=== PATIENT | female | born 1945 | race Caucasian/White ===

== ENCOUNTER → 2023-05-19 18:35 | Outpatient (REF) | payer MEDICARE, OTHER, SELFPAY ==
[2023-05-19 19:16] LABS: Urine Albumin Negative (Neg - Trace); Urine Bilirubin Negative (Negative); Urine Character Clear (Clear); Urine Color Yellow; Urine Glucose Negative (Negative); Urine Ketone Negative (Negative); Urine Leukocyte 2+ (Negative); Urine Nitrite Positive (Negative); Urine Occult Blood Trace (Negative); Urine Urobilinogen Negative (Neg - 1+); Urine pH 6.5 (5.0-9.0)
[2023-05-19 19:26] LABS: Urine Bacteria Many (Negative); Urine Red Blood Cell 0-2 /HPF (0-2); Urine Squamous Cell >100 /LPF (Few); Urine White Cell >100 /HPF (0-5)
== END ==
LOC: OLABSOL 18:35
PROVIDERS: ATTENDING PHYSICIAN Registered Nurse
DX: N39.0 Urinary tract infection, site not specified (principal)
CPT/HCPCS: 81003; 81015

== ENCOUNTER → 2023-05-27 13:01 | Outpatient (REF) | payer MEDICARE, OTHER, SELFPAY ==
[2023-05-27 13:51] LABS: Urine Albumin Negative (Neg - Trace); Urine Bilirubin Negative (Negative); Urine Character Clear (Clear); Urine Color Yellow; Urine Glucose Negative (Negative); Urine Ketone Negative (Negative); Urine Leukocyte 1+ (Negative); Urine Nitrite Positive (Negative); Urine Occult Blood Negative (Negative); Urine Specific Gravity 1.025 (<1.030); Urine Urobilinogen Negative (Neg - 1+)
[2023-05-27 14:04] LABS: Urine Bacteria Many (Negative); Urine White Cell 21-25 /HPF (0-5)
== END ==
LOC: OLABSOL 13:01
PROVIDERS: ATTENDING PHYSICIAN Hospitalist
DX: R41.82 Altered mental status, unspecified (principal)
CPT/HCPCS: 81003; 81015; 87086; 87088; 87186

== ENCOUNTER → 2023-07-06 15:00 | Outpatient (REF) | payer MEDICARE, OTHER, SELFPAY ==
[2023-07-07 12:58] LABS: Urine Albumin Negative (Neg - Trace); Urine Bilirubin Negative (Negative); Urine Character Clear (Clear); Urine Color Yellow; Urine Glucose Negative (Negative); Urine Ketone Negative (Negative); Urine Leukocyte 2+ (Negative); Urine Nitrite Positive (Negative); Urine Occult Blood Negative (Negative); Urine Urobilinogen Negative (Neg - 1+)
[2023-07-07 14:13] LABS: Urine Amorphous Seen; Urine Mucus Few
[2023-07-07 14:16] LABS: Urine Bacteria Many (Negative); Urine Red Blood Cell 0-2 /HPF (0-2); Urine White Cell 40-50 /HPF (0-5)
== END ==
LOC: OLABSOL 15:00
PROVIDERS: ATTENDING PHYSICIAN Nurse Practitioner Gerontology
DX: N39.0 Urinary tract infection, site not specified (principal)
CPT/HCPCS: 81003; 81015; 87077; 87086; 87186

== ENCOUNTER 2023-08-11 17:51 | Emergency (ER) | payer MEDICARE, OTHER, SELFPAY ==
[2023-08-11 17:54] VITALS: BP 125/65
[2023-08-11 17:57] VITALS: BMI 22.3
[2023-08-11 18:14] LABS: % Basophils 0.3 % (0-2); % Eosinophils 0.4 % (0-6); % Immature Granulocytes 0.5 % (0-0.5); % Lymphocytes 8.1 % (20.5-51.1); % Monocytes 8.4 % (1.7-9.3); % Neutrophils 82.3 % (42.2-75.2); Absolute Eosinophils 0.1 10^3/uL (0-0.7); Absolute Immature Granulocytes 0.1 10^3/uL (0-0.05); Absolute Lymphocytes 1.1 10^3/uL (1.2-3.4); Absolute Monocytes 1.2 10^3/uL (0.1-0.6); Absolute Neutrophils 11.6 10^3/uL (1.4-6.5); Hemoglobin 11.7 g/dL (12.0-16.0); Mean Corp Hgb Conc. 32.5 g/dL (33.0-37.0); Mean Corpuscular Hgb 24.6 pg (27.0-31.0); Mean Corpuscular Volume 75.6 fL (81.0-99.0); Mean Platelet Volume 9.9 fL (7.4-10.4); Nucleated Red Blood Cells % 0 %; Platelet Count 267 10^3/uL (130-400); Red Blood Cell Count 4.76 10^6/uL (4.20-5.40); Red Cell Dist. Width 18.9 % (11.5-14.5); White Blood Cell Count 14.1 10^3/uL (4.8-10.8)
[2023-08-11 18:36] LABS: ALT (SGPT) 10 U/L (0-35); AST (SGOT) 21 U/L (14-36); Albumin 4.4 g/dl (3.5-5.0); Alkaline Phosphatase 95 U/L (38-126); Blood Urea Nitrogen 21 mg/dl (7-17); Calcium 9.3 mg/dl (8.4-10.2); Carbon Dioxide 24 mmol/L (22-30); Chloride 103 mmol/L (98-107); Estimated Creatinine Clearance 54 ml/min; Glucose 99 mg/dl (70-99); Lipase 22 U/L (23-300); Potassium 4.1 mmol/L (3.5-5.1); Sodium 137 mmol/L (135-145); Total Bilirubin 0.7 mg/dl (0.2-1.3); Total Protein 7.4 g/dl (6.3-8.2); eGFR > 60.00
[2023-08-11 21:22] VITALS: BP 91/68
[2023-08-11 21:33] LABS: Urine Albumin Trace (Neg - Trace); Urine Bilirubin Negative (Negative); Urine Character Very Cloudy (Clear); Urine Color Yellow; Urine Glucose Negative (Negative); Urine Ketone Trace (Negative); Urine Leukocyte 2+ (Negative); Urine Nitrite Negative (Negative); Urine Occult Blood 2+ (Negative); Urine Urobilinogen Negative (Neg - 1+)
[2023-08-11 21:41] LABS: Urine Bacteria Many (Negative); Urine Red Blood Cell 0-2 /HPF (0-2); Urine White Cell 30-40 /HPF (0-5)
[2023-08-11 21:56] VITALS: BP 117/61
[2023-08-11 22:00] VITALS: BP 107/61
--- NOTE | 2023-08-11 22:11 | ED.GENMED ---
History of Present Illness
General
Chief Complaint: Abdominal Pain
Source: patient and family
Exam Limitations: none
Time Seen by Provider: 08/11/23 20:56
Travel History
Have you had any contact with someone who has COVID-19?: No
Do you have any symptoms of coronavirus? Fever > 100 degrees, chills, cough, shortness of breath, sore throat, loss of taste or smell, muscle aches, or headache?: No
History of Present Illness
History of Present Illness:
77-year-old female with frequent UTIs. Finished Macrobid last week. Today she had more urgency and frequency which warranted evaluation. No fever no flank or back pain.
Past History
Past History
ED Past Medical History: Hypercholesterolemia and Other (Kidney stones)
ED Past Surgical History: Gynecological, Orthopedic (Bunionectomy with hammertoe repair, left patellar fracture, right hip replacement, fusion C3-4-5 and 6), Tonsilectomy and Other (Patient has functional quadriplegia with spasticity, left leg brace)
Social History
Tobacco: Former smoker
Alcohol: None
Personal:
Living: with family
Review of Systems
Review of Systems
All Other Systems: Not applicable
Constitutional: Denies fever
: Denies flank pain
Phy Exam
Physical Exam
Physical Exam:
GENERAL: Alert and oriented in no apparent distress
EYE: Orbits normal.
NECK: Supple
CARDIAC: Regular rate and rhythm without any obvious murmurs.
LUNGS: Clear breath sounds,normal
ABDOMEN: Soft, without focal tenderness or distention. No CVA tenderness
NEUROLOGICAL: Alert and oriented , grossly non-focal
SKIN: Warm and dry, no rash or lesion, no discoloration, skin intact.
MUSCULOSKELETAL: No edema,no deformity.Good color
PSYCH: Normal and appropriate interaction.
Course
Orders/Labs/Results
Orders:
Orders
08/11/23 17:59
Electrocardiogram (*1) Urgent
Reason for Study: Abdominal Pain
EKG- Treatment ONCE
08/11/23 18:10
Complete Blood Count/With Diff Urgent
Comprehensive Metabolic Panel Urgent
Lipase Urgent
08/11/23 21:06
CT Abd/pel Without Iv Or Oral Urgent
Comment:
Reason For Exam: Recurrent UTI. Evaluate for hydronephrosis/stone
08/11/23 21:20
Urinalysis Reflex To Culture Urgent
Date Specimen was Collected: 08/11/23
Time Specimen was Collected: 21:12
Urine Microscopic Reflex Cult Urgent
Urine Culture Urgent
BURT Source: U
Specimen Description:
Date Specimen was Collected: 08/11/23
Time Specimen was Collected: 21:12
08/11/23 22:44
CefTRIAXone [Rocephin] 1,000 mg IV NOW STA
Abnormal Lab Results
08/11/23 08/11/23
18:10 21:20
WBC 14.1 H 10^3/uL
(4.8-10.8)
Hgb 11.7 L g/dL
(12.0-16.0)
Hct 36.0 L %
(37.0-47.0)
MCV 75.6 L fL
(81.0-99.0)
MCH 24.6 L pg
(27.0-31.0)
MCHC 32.5 L g/dL
(33.0-37.0)
RDW 18.9 H %
(11.5-14.5)
Abs Immat Gran (auto) 0.1 H 10^3/uL
(0-0.05)
Absolute Neuts (auto) 11.6 H 10^3/uL
(1.4-6.5)
Absolute Lymphs (auto) 1.1 L 10^3/uL
(1.2-3.4)
Absolute Monos (auto) 1.2 H 10^3/uL
(0.1-0.6)
Neutrophils % 82.3 H %
(42.2-75.2)
Lymphocytes % 8.1 L %
(20.5-51.1)
BUN 21 H mg/dl
(7-17)
Creatinine 0.5 L mg/dL
(0.6-1.0)
Lipase 22 L U/L
(23-300)
Urine Ketones Trace A
(Negative)
Ur Occult Blood Reflex 2+ A
(Negative)
Leukocyte Esterase Rfl 2+ A
(Negative)
Urine WBC (Reflex) 30-40 A /HPF
(0-5)
Urine Bacteria (Reflex) Many A
(Negative)
08/11/23 18:10
08/11/23 18:10
Vital Signs
Initial and Last Documented VS:
Initial Vital Signs
Temp Pulse Resp BP Pulse Ox
98.7 F 94 18 125/65 97
08/11/23 17:54 08/11/23 17:54 08/11/23 17:54 08/11/23 17:54 08/11/23 17:54
Last Documented Vital Signs
Temp Pulse Resp BP Pulse Ox
98.7 F 94 18 107/61 96
08/11/23 17:54 08/11/23 17:54 08/11/23 17:54 08/11/23 22:00 08/11/23 22:30
*Radiology
Radiology exam reviewed: radiology read reviewed (No obvious urinary or kidney issue from CT scan)
*Pulse Oximetry
Patient hypoxic: no
*EKG
Interpreted by ED Provider?: Yes
Interpretation: abnormal
Comparison EKG: no changes
Heart Rate: 100
Rate: normal
Rhythm: sinus
Tuckerman: left axis deviation
Interval: normal interval
QRS Pattern: left vent hypertrophy
Ischemia: non-specific ST changes
*Critical Care Note
Total Time (30-74mins, 75-104mins- exclusive of procedures): Not Applicable
Data Reviewed
Review of Other/Old Records Reveals: Labs and Testing
Update Note
Update Note:
Patient stable and nontoxic. No sign of stone. In no distress. Mild white count. Clinically not toxic. Will give a gram of Rocephin and follow-up. No significant bladder distention
Copy of CT report given to patient's daughter
ED Attending Note
-
Portions of this chart may have been created with voice recognition software.� Occasional wrong word or��sound alike� substitutions may have occurred due to the inherent limitations of voice recognition software.
Discharge Plan
Departure
Patient Disposition: Home (Routine Discharge)
Date of Disposition: 08/11/23
Time of Disposition: 22:46
Patient with high blood pressure during this ER visit?: No
Discharge Problem:
Recurrent UTI
Instructions: Urinary Tract Infection, Adult ED
Prescriptions:
New
cefdinir 300 mg capsule
300 mg PO BID 7 Days Qty: 14 0RF
No Action
fluticasone propion-salmeterol 250-50 mcg/dose blister with device
1 inh INHALATION R BID
oxybutynin chloride 10 mg tablet extended release 24hr
10 mg PO DAILY
levothyroxine 112 mcg tablet
112 mcg PO HS
pantoprazole 40 mg Tablet,Delayed Release (Dr/Ec)
40 mg PO DAILY
duloxetine 30 mg Capsule,Delayed Release(Dr/Ec)
90 mg PO DAILY Qty: 0 0RF
docusate sodium 100 mg Capsule
100 mg PO BID Qty: 0 0RF
polyethylene glycol 3350 17 gram Powder In Packet
17 g PO DAILY Qty: 0 0RF
bupropion HCl 100 mg Tablet Sustained-Release 12 Hr
100 mg PO DAILY Qty: 0 0RF
cholecalciferol (vitamin D3) [Vitamin D3] 10 mcg (400 unit) Tablet
400 units PO DAILY Qty: 0 0RF
acetaminophen 500 mg Tablet
1,000 mg PO Q8H Qty: 0 0RF
baclofen 10 mg Tablet
15 mg PO TID@0800,1400,2000 Qty: 0 0RF
celecoxib 200 mg Capsule
200 mg PO DAILY Qty: 30 0RF
gabapentin 300 mg Capsule
300 mg PO Q8 Qty: 60 0RF
lidocaine [Aspercreme (lidocaine)] 4 % adhesive patch,medicated
2 patch topical DAILY
aspirin 81 mg capsule
81 mg PO DAILY Qty: 30 0RF
lorazepam 0.5 mg Tablet
0.5 mg PO HSPRN PRN (Reason: Anxiety / Insomnia) Qty: 7 0RF
oxycodone 5 mg Tablet
5 mg PO Q4HPRN PRN (Reason: moderate pain) Qty: 7 0RF
Referrals:
JOHN BIRCH CRNP [Family Provider] - Follow up in 2-3 days
Gerardo Valentin MD [Active] - Next open appointment
Activity Restrictions/Additional Instructions:
Start the oral antibiotics tomorrow night
Interventions
Interventions:
*Risk Screen - Suicide Last Done: 08/11/23 17:57
*Neglect/Abuse Screening Last Done: 08/11/23 17:57
ED- Fall Risk Assessment Last Done: 08/11/23 17:57
NK-Rjyrtu-Zlferlxcdl Assessment Last Done: 08/11/23 21:12
Discharge Date and Time
Print Language: SAMOAN
[2023-08-11] MEDS: ROCEPHIN 1000 MG IV (22:59)
[2023-08-11 23:00] VITALS: BP 123/65
== END 2023-08-11 23:20 | disposition home or self-care (01) ==
LOC: EMR 17:51
PROVIDERS: Emergency Medicine; EMERGENCY PHYSICIAN Emergency Medicine; FAMILY PHYSICIAN Nurse Practitioner Gerontology
DX: N39.0 Urinary tract infection, site not specified (principal); Z87.891 Personal history of nicotine dependence; Z87.440 Personal history of urinary (tract) infections
CPT/HCPCS: 99285; 96374; 74176; 80053; 81003; 81015; 83690; 85025; 87086; 87088; 87186; 93005

== ENCOUNTER 2023-08-30 19:14 | Inpatient (IN) | payer MEDICARE, OTHER, SELFPAY ==
[2023-08-30 15:30] VITALS: BP 116/83; BMI 22.5
--- NOTE | 2023-08-30 15:57 | ED.GENMED ---
History of Present Illness
General
Chief Complaint: Urinary Symptoms
Source: patient and detention records
Exam Limitations: none
Time Seen by Provider: 08/30/23 15:55
Nursing documentation reviewed up to this point in time: agreed with
Travel History
Have you had any contact with someone who has COVID-19?: No
Do you have any symptoms of coronavirus? Fever > 100 degrees, chills, cough, shortness of breath, sore throat, loss of taste or smell, muscle aches, or headache?: No
History of Present Illness
History of Present Illness:
77-year-old female from [place] with history of diverticulitis, GERD, IBS, difficulty urination, frequent UTIs, hypothyroid, anxiety depression panic disorder, presents stating 'my bladder did not empty for a whole week.' She denies abdominal pain.
She denies dysuria. She denies fever or chills.
Past History
Past History
ED Past Medical History: Hypercholesterolemia, Psychiatric (Anxiety/depression/panic disorder) and Other (Kidney stones)
ED Past Surgical History: Gynecological, Orthopedic (Bunionectomy with hammertoe repair, left patellar fracture, right hip replacement, fusion C3-4-5 and 6), Tonsilectomy and Other (Patient has functional quadriplegia with spasticity, left leg brace)
Social History
Tobacco: Former smoker
Alcohol: None
Personal:
Living: with family
Review of Systems
Review of Systems
Allergies reviewed?: Yes
All Other Systems: ROS reviewed and negative except as documented in HPI and ROS
Constitutional: Denies fever or chills
Respiratory: Denies trouble breathing
Cardiac: Denies chest pain
ABD/GI: Denies abdominal pain, nausea, vomiting, diarrhea or anorexia
: Reports frequency and difficulty voiding; Denies dysuria or flank pain
Musculoskeletal: Reports no symptoms
Skin: Reports no symptoms
Neurological: Reports no symptoms
Phy Exam
Physical Exam
Physical Exam:
GENERAL: No acute distress. A&Ox3.
CONSTITUTIONAL: Afebrile.
RESPIRATORY: Regular respirations, nonlabored, lungs clear.
CARDIOVASCULAR: Regular rate and rhythm, no murmurs, no rubs.
GI: Soft, nontender, normal BS
Rectal: Stool heme neg
MUSCULOSKELETAL: Moves with ease. Well perfused.
SKIN: Warm, dry, pink
PSYCH: Normal mood and affect. Well kept, interactive and appropriate
NEUROLOGIC: Awake, alert and oriented. No focal neurological deficits
Course
Orders/Labs/Results
Orders:
Orders
08/30/23 Breakfast
Cholesterol Lowering
At Your Request: Full Participation
Cholesterol Lowering: Sodium, 2 Gram
08/30/23 16:34
Urinalysis Reflex To Culture Urgent
Date Specimen was Collected: 08/30/23
Time Specimen was Collected: 15:54
Urine Microscopic Reflex Cult Urgent
Urine Culture Urgent
BURT Source: U
Specimen Description:
Date Specimen was Collected: 08/30/23
Time Specimen was Collected: 15:54
08/30/23 16:37
Complete Blood Count/With Diff Urgent
08/30/23 18:19
Piperacillin/Tazo 3.375 Gram [Zosyn] 3.375 gram in 50 ml IV NOW
08/30/23 18:27
Comprehensive Metabolic Panel Urgent
08/30/23 18:50
Admit/Transfer Patient As Directed
Co-Sign Provider:
Level of Care: Inpatient admission
Assign to:: Medical/Surgical
Physician / Group: jeannette oconnell
Diagnosis: UTi
Reason for Hospitalization: UTi
Expected length of stay greater than two midnights?: Yes
ELOS- Estimated Length of Stay in days: 3
I certify the patient meets the requirements for IP care: Yes
Code Status As Directed
Resuscitation Status: Full Code
08/30/23 19:31
Acetaminophen [Tylenol] 650 mg PO Q4HPRN PRN
Acetaminophen [Tylenol] 650 mg PO Q6HPRN PRN
Bisacodyl [Dulcolax] 10 mg RECTAL [id number] PRN
Docusate W/Senna [Senokot-S] 1 tablet PO BIDPRN PRN
Lorazepam [Ativan] 0.5 mg PO HSPRN PRN
Oxycodone [Roxicodone] 5 mg PO Q8HPRN PRN
Polyethylene Glycol Powder [Miralax] 17 grams PO DAILYPRN PRN
08/30/23 19:31
Activity As Directed
Activity Level: As Tolerated
Vital Signs As Directed
Frequency: Per unit guidelines
DX Deep Vein Thrombosis Video Routine
08/30/23 20:00
Baclofen [Lioresal] 10 mg PO TID@0800,1400,2000
Docusate Sodium [Colace] 100 mg PO BID
08/30/23 22:00
Levothyroxine [Synthroid] 112 mcg PO HS
08/31/23 00:00
Acetaminophen [Tylenol] 500 mg PO Q8
Gabapentin [Neurontin] 300 mg PO Q8
Piperacillin/Tazo 3.375 Gram [Zosyn] 3.375 gram in 50 ml IV Q6H
08/31/23 05:28
Basic Metabolic Panel IN AM
Complete Blood Count/No Diff IN AM
08/31/23 06:00
Occupational Therapy Consult [Ot Eval And Treat] IN AM
Physical Therapy Consult [Pt Eval And Treat] IN AM
Activity Level: As Tolerated
08/31/23 08:00
Bupropion(24Hr)Extended Releas [WELLBUTRIN XL (24 hour extended release)] 150 mg PO DAILY
Celecoxib [Celebrex] 200 mg PO DAILY
Fluticasone/Salmeterol 115/21 [Advair Hfa 115/21 Mcg Inhaler] 2 puff INH R BID
Lidocaine [Lidocaine 4% Patch] See Dose Instructions TOPICAL DAILY
Oxybutynin Chloride [Ditropan] 5 mg PO BID
Pantoprazole [Protonix] 40 mg PO DAILY
08/31/23 18:00
Enoxaparin Sodium [Lovenox] 40 mg SC QPM
09/01/23 06:00
Basic Metabolic Panel IN AM
Complete Blood Count/No Diff IN AM
09/02/23 06:00
Basic Metabolic Panel IN AM
Complete Blood Count/No Diff IN AM
09/03/23 06:00
Basic Metabolic Panel IN AM
Complete Blood Count/No Diff IN AM
09/04/23 06:00
Basic Metabolic Panel IN AM
Complete Blood Count/No Diff IN AM
Abnormal Lab Results
08/30/23 08/30/23 08/30/23
16:34 16:37 18:27
RBC 3.95 L 10^6/uL
(4.20-5.40)
Hgb 9.8 L g/dL
(12.0-16.0)
Hct 30.5 L %
(37.0-47.0)
MCV 77.2 L fL
(81.0-99.0)
MCH 24.8 L pg
(27.0-31.0)
MCHC 32.1 L g/dL
(33.0-37.0)
RDW 18.9 H %
(11.5-14.5)
MPV 10.6 H fL
(7.4-10.4)
Absolute Neuts (auto) 7.0 H 10^3/uL
(1.4-6.5)
Absolute Monos (auto) 1.5 H 10^3/uL
(0.1-0.6)
Lymphocytes % 15.1 L %
(20.5-51.1)
Monocytes % 14.2 H %
(1.7-9.3)
Sodium 134 L mmol/L
(135-145)
Carbon Dioxide 21 L mmol/L
(22-30)
BUN 22 H mg/dl
(7-17)
AST 39 H U/L
(14-36)
Urine Ketones Trace A
(Negative)
Ur Occult Blood Reflex 1+ A
(Negative)
Leukocyte Esterase Rfl 2+ A
(Negative)
Urine RBC 3-6 A /HPF
(0-2)
Urine WBC (Reflex) 70-80 A /HPF
(0-5)
Urine Bacteria (Reflex) Many A
(Negative)
08/30/23 16:37
08/30/23 18:27
Vital Signs
Initial and Last Documented VS:
Initial Vital Signs
Temp Pulse Resp BP Pulse Ox
98.5 F 77 18 116/83 96
08/30/23 15:30 08/30/23 15:30 08/30/23 15:30 08/30/23 15:30 08/30/23 15:30
Last Documented Vital Signs
Temp Pulse Resp BP Pulse Ox
98.1 F 72 16 116/60 94
08/31/23 08:02 08/31/23 08:20 08/31/23 08:20 08/31/23 08:02 08/31/23 08:20
MDM/Problems Addressed
Differential Diagnosis Includes:
UTI, urine retention
MDM/Problems Addressed:
77-year-old female from [place] with history of diverticulitis, GERD, IBS, difficulty urination, frequent UTIs, hypothyroid, anxiety depression panic disorder, presents stating 'my bladder did not empty for a whole week.' She denies abdominal pain.
She denies dysuria. She denies fever or chills.
Afebrile, NAD
Postvoid bladder scan 100 mL
5:15 PM CBC: Hemoglobin 9.8, microcytic hypochromic anemia (history of iron deficiency anemia)
Stool heme neg
CMP: Unremarkable
U/A: +2 Leukocyte est, neg Nitrites RBC 3-6 WBC 70-80, many bacteria
Previous UTI some resistance to Augmentin, Ceftriaxone, and some sensitive to them.
Will give one dose Monurol pending urine culture results.
Pt has no systemic symptoms.
She has recently failed Omnicef and Nitrofurantoin
CBC with no clinically significant abnormality
CMP pending, unable to get her blood.
Her recent past renal functions have been normal
6:20 p.m.
Case discussed with Dr. Terrell, recommends admitting for IV antibiotics pending urine cultures
All sensitive to Zosyn.
Hospitalist notified of admission
*Critical Care Note
Total Time (30-74mins, 75-104mins- exclusive of procedures): Not Applicable
ED Attending Note
-
Portions of this chart may have been created with voice recognition software.� Occasional wrong word or��sound alike� substitutions may have occurred due to the inherent limitations of voice recognition software.
Discharge Plan
Departure
Patient Disposition: Admit
Date of Disposition: 08/30/23
Time of Disposition: 18:20
Admit to: Med/Surg
Presentation/result/management discussed w/ accepting MD/DO: Hospitalist
Condition: Good
Discharge Problem:
Recurrent urinary tract infection
Interventions
Interventions:
*Risk Screen - Suicide Last Done: 08/30/23 15:34
*General Assessment Last Done: 08/30/23 15:34
*Neglect/Abuse Screening Last Done: 08/30/23 15:34
ED- Fall Risk Assessment Last Done: 08/30/23 19:26
*ED COVID-19 Vaccine History Last Done: 08/30/23 15:34
*Nursing Disposition Last Done: 08/30/23 19:26
ED-Female Genitourinary Assessment Last Done: 08/30/23 16:43
Discharge Date and Time
Discharge Date/Time: 08/30/23 19:28
[2023-08-30 16:48] LABS: % Basophils 0.3 % (0-2); % Eosinophils 1.2 % (0-6); % Immature Granulocytes 0.4 % (0-0.5); % Lymphocytes 15.1 % (20.5-51.1); % Monocytes 14.2 % (1.7-9.3); % Neutrophils 68.8 % (42.2-75.2); Absolute Eosinophils 0.1 10^3/uL (0-0.7); Absolute Lymphocytes 1.5 10^3/uL (1.2-3.4); Absolute Monocytes 1.5 10^3/uL (0.1-0.6); Hematocrit 30.5 % (37.0-47.0); Hemoglobin 9.8 g/dL (12.0-16.0); Mean Corp Hgb Conc. 32.1 g/dL (33.0-37.0); Mean Corpuscular Hgb 24.8 pg (27.0-31.0); Mean Corpuscular Volume 77.2 fL (81.0-99.0); Mean Platelet Volume 10.6 fL (7.4-10.4); Nucleated Red Blood Cells % 0 %; Platelet Count 233 10^3/uL (130-400); Red Blood Cell Count 3.95 10^6/uL (4.20-5.40); Red Cell Dist. Width 18.9 % (11.5-14.5); White Blood Cell Count 10.2 10^3/uL (4.8-10.8)
[2023-08-30 17:00] LABS: Urine Albumin Negative (Neg - Trace); Urine Bilirubin Negative (Negative); Urine Character Slightly Cloudy (Clear); Urine Color Yellow; Urine Glucose Negative (Negative); Urine Ketone Trace (Negative); Urine Leukocyte 2+ (Negative); Urine Nitrite Negative (Negative); Urine Occult Blood 1+ (Negative); Urine Specific Gravity 1.005 (<1.030); Urine Urobilinogen Negative (Neg - 1+)
[2023-08-30 17:30] LABS: Urine Squamous Cell 0-2 /LPF (Few); Urine White Cell 70-80 /HPF (0-5)
[2023-08-30 17:31] LABS: Urine Bacteria Many (Negative)
--- NOTE | 2023-08-30 18:23 | HPS.HSE ---
Addendum entered and electronically signed by Christofer Escoto MD 08/31/23 07:35:
I saw and examined the patient.
The ART OBJECTS SALESPERSON's note was reviewed and I agree with the note.
Patient is a 77-year-old female with past medical history of recurrent UTI with history of ESBL organism, GERD, IBS, hypothyroidism, bilateral fibroadenoma, tubal ligation, right total hip replacement came to ER with feeling of incomplete voiding
sensation. Patient denied any dysuria/fever or chills. Patient has a problem with urinary incontinence and gets aggravated with urine tract infection. Patient have history of recurrent urine tract infection with previous urine culture growing
ESBL organism. No previous history of kidney stones/pyelonephritis/ureteral stent.
HEENT: No pallor, cyanosis, or jaundice. Throat clear.
NECK: Supple. No JVD.
RESPIRATORY: Lungs clear to auscultation.
CVS: S1, S2 normal. RRR. No murmur, rub or gallop.
ABDOMEN: Soft, non-tender. No distension. BS+/normal.
EXTREMITIES: No peripheral cyanosis or edema.
LEARNING SUPPORT RESOURCE ROOM TEACHER: AOx3. No focal deficits.
Recurrent UTI - drug resistant infection
h/o ESBL UTI
-urine cs earlier this year has grown ESBL organism
-Patient complains of having incomplete voiding and some urinary urgency which are the main symptoms patient have with recurrent UTI
-WBC normal. No fever or chills. Patient was lethargic and weak as well according to family
-UA showing moderate pyuria and bacteriuria
-Maintain patient on Zosyn and previous susceptibility report
-Repeat urine cs this admit
-Have advised patient strongly to follow-up with urology to have urodynamic study as possibly contributing factor to recurrent UTI
DVT PPX -scd
full code
Original Note:
Family Physician
-
Family Physician: Donald Walker
Chief Complaint
-
urinary frequency
History of Present Illness
77 year old with PMH for fibromyalgia, IBS, GERD, frequent UTI presented to us with urinary frequency for past few days. she felt like her bladder is full. she had diarrhea last week, which resolved with medium. she denied fever, chills, chest
pain, sob. denied ALICEA, dizzy or syncopal episode. denied abdominal pain, n,v, d. denied hematuria.
positive UA in ER. admitting for further management.
Medical History
Past Medical History
Past Medical History: Reports Other
Additional Past Medical History:
fibromyalgia
IBS
GERD
Past Surgical History: Reports Other
Additional Past Surgical History:
fibroadenoma removal
tendon repair right elbow
tubal ligation
right hip replacement
bunionectomy
right eye cataract surgery
left hip ORIF
Social History
Tobacco: Non-smoker
Alcohol: Occasional
Drug: None
Living: Intermediate
Family History
Family History: Not pertinent
Allergies / Home Medications
Allergies reflects when Allergies were last updated in [facility].
Home Medications with original date entered in [facility]
Allergy/Medication List:
Allergies
Allergy/AdvReac Type Severity Reaction Status Date / Time
apixaban [From Eliquis] Allergy Blood in Verified 08/11/23 17:57
urine
Iodinated Contrast Media Allergy 'rendered Verified 08/11/23 17:57
[Iodinated Contrast Media - me
IV Dye] uconscious'
iodine Allergy UNKNOWN Verified 08/11/23 17:57
'SENSITIVE'
Latex, Natural Rubber Allergy Rash Verified 08/11/23 17:57
penicillin G Allergy diarrhea Verified 08/11/23 17:57
propofol Allergy SEE BELOW Verified 08/11/23 17:57
Home Medications
fluticasone 250 mcg-salmeterol 50 mcg/dose blistr powdr for inhalation 1 inh inhalation R BID Lung/breathing issues 04/13/22
levothyroxine 112 mcg tablet 112 mcg PO HS Thyroid 04/13/22
oxybutynin chloride 10 mg tablet,extended release 24 hr 10 mg PO DAILY Urinary issue 04/13/22
pantoprazole 40 mg tablet,delayed release 40 mg PO DAILY Gastrointestinal issue 04/13/22
bupropion HCl 100 mg tablet,12 hr sustained-release 100 mg PO DAILY #0 tabs 04/21/22
docusate sodium 100 mg capsule 100 mg PO BID #0 caps 04/21/22
duloxetine 30 mg capsule,delayed release 90 mg (3 x 30 mg) PO DAILY #0 caps 04/21/22
polyethylene glycol 3350 17 gram oral powder packet 17 g PO DAILY #0 ea 04/21/22
acetaminophen 500 mg tablet 1,000 mg (2 x 500 mg) PO Q8H #0 tabs 04/27/22
baclofen 10 mg tablet 15 mg (1.5 x 10 mg) PO TID@0800,1400,2000 #0 tabs 04/27/22
celecoxib 200 mg capsule 200 mg PO DAILY #30 caps 04/27/22
cholecalciferol (vitamin D3) 10 mcg (400 unit) tablet (Vitamin D3) 400 units PO DAILY #0 tabs 04/27/22
gabapentin 300 mg capsule 300 mg PO Q8 #60 caps 04/27/22
lidocaine 4 % topical patch (Aspercreme (lidocaine)) 2 patch topical DAILY Pain 07/11/22
aspirin 81 mg capsule 81 mg PO DAILY #30 caps 07/15/22
lorazepam 0.5 mg tablet 0.5 mg PO HSPRN PRN Anxiety / Insomnia #7 tabs 08/29/22
oxycodone 5 mg tablet 5 mg PO Q4HPRN PRN moderate pain #7 tabs 08/29/22
cefdinir 300 mg capsule 300 mg PO BID 7 days #14 caps 08/11/23
Review of Systems
-
Constitutional: Reports No Symptoms
EENT: Reports No Symptoms
Respiratory: Reports No Symptoms
Cardiac: Reports No Symptoms
Abdomen/GI: Reports No Symptoms
: Reports Frequency and Urgency
Musculoskeletal: Reports No Symptoms
Skin: Reports No Symptoms
Neurological: Reports No Symptoms
Endocrine: Reports No Symptoms
Hematologic/Lymphatic: Reports No Symptoms
Psych: Reports No Symptoms
Physical Exam
Vital Signs
Vital Signs
Temp Pulse Resp BP Pulse Ox
98.5 F 77 18 116/83 96
08/30/23 15:30 08/30/23 15:30 08/30/23 15:30 08/30/23 15:30 08/30/23 15:30
Physical Exam
General: Well Developed, Well Nourished and No Apparent Distress
HEENT: NormoCephalic, Moist mucous membranes and Atraumatic
Respiratory: Clear
Cardiac: S1/S2 and Regular Rhythm; No Murmur or Rub
GI: Soft, Non Tender, Non Distended and Normal Bowel Sounds; No Organomegaly
Rectal: Deferred by Provider
Musculoskeletal: No Clubbing, No Cyanosis and No Edema
Skin: No Rash
Neuro: AO x 3 and Nonfocal/grossly intact
Psych: Calm
Laboratory Results
-
08/30/23 16:37
Laboratory Results
Total Bilirubin Cancelled 08/30/23 16:37
AST Cancelled 08/30/23 16:37
ALT Cancelled 08/30/23 16:37
Alkaline Phosphatase Cancelled 08/30/23 16:37
Data Reviewed
-
Lab Data: Labs Reviewed by me
Impression/Plan
-
# Urinary tract infection
-obtain renal bladder US
-IV Zosyn continued
-Tylenol as needed for fever
-History of E. coli UTI
# Anemia of chronic disease
-Hemoglobin stable at 9.8
-No active bleeding
-Continue to monitor
#COPD, no acute exacerbation--Continue Fluticasone
#Hypothyroidism--Continue levothyroxine
#Anxiety/Depression--continue Wellbutrin
#fibromyalgia/Chronic Pain Syndrome--continue Baclofen, oxy,tylenol and lidocaine patich
#GERD--Continue Protonix
#DVT proph: lovenox
#Code Status: Full Code
[2023-08-30] MEDS: ZOSYN 50 IV ×2 (18:31→23:01)
[2023-08-30 18:45] LABS: ALT (SGPT) 19 U/L (0-35); AST (SGOT) 39 U/L (14-36); Albumin 4.1 g/dl (3.5-5.0); Alkaline Phosphatase 92 U/L (38-126); Blood Urea Nitrogen 22 mg/dl (7-17); Calcium 9.2 mg/dl (8.4-10.2); Carbon Dioxide 21 mmol/L (22-30); Chloride 100 mmol/L (98-107); Estimated Creatinine Clearance 54 ml/min; Glucose 89 mg/dl (70-99); Potassium 3.9 mmol/L (3.5-5.1); Sodium 134 mmol/L (135-145); Total Bilirubin 0.8 mg/dl (0.2-1.3); Total Protein 7.3 g/dl (6.3-8.2); eGFR > 60.00
[2023-08-30 19:45] VITALS: BP 146/62; BMI 21.7
[2023-08-30] MEDS: LIORESAL 10 MG PO (20:58)
[2023-08-30] MEDS: COLACE PO (20:58)
[2023-08-30] MEDS: SYNTHROID 112 MCG PO (21:01)
[2023-08-30] MEDS: ATIVAN 0.5 MG PO (23:00)
[2023-08-30] MEDS: TYLENOL 500 MG PO (23:00)
[2023-08-30] MEDS: NEURONTIN 300 MG PO (23:00)
[2023-08-30 23:30] VITALS: BP 124/60
[2023-08-31] MEDS: ZOSYN 50 IV ×4 (05:09→23:25)
[2023-08-31 06:28] LABS: Hematocrit 29.2 % (37.0-47.0); Hemoglobin 9.4 g/dL (12.0-16.0); Mean Corp Hgb Conc. 32.2 g/dL (33.0-37.0); Mean Corpuscular Hgb 24.6 pg (27.0-31.0); Mean Corpuscular Volume 76.4 fL (81.0-99.0); Mean Platelet Volume 11.2 fL (7.4-10.4); Platelet Count 298 10^3/uL (130-400); Red Blood Cell Count 3.82 10^6/uL (4.20-5.40); Red Cell Dist. Width 19.3 % (11.5-14.5); White Blood Cell Count 7.8 10^3/uL (4.8-10.8)
[2023-08-31 06:43] LABS: Blood Urea Nitrogen 16 mg/dl (7-17); Carbon Dioxide 23 mmol/L (22-30); Chloride 103 mmol/L (98-107); Estimated Creatinine Clearance 54 ml/min; Glucose 89 mg/dl (70-99); Potassium 4.1 mmol/L (3.5-5.1); Sodium 136 mmol/L (135-145); eGFR > 60.00
[2023-08-31 08:02] VITALS: BP 116/60
[2023-08-31] MEDS: ADVAIR HFA 115/21 MCG INHALER 2 PUFF INH ×2 (08:15→19:30)
[2023-08-31 09:06] VITALS: BP 133/62; PULSE 88; O2SAT 95
[2023-08-31 09:07] VITALS: BP 133/62; PULSE 84; O2SAT 94
[2023-08-31] MEDS: DITROPAN 5 MG PO ×2 (10:53→20:21)
[2023-08-31] MEDS: TYLENOL 500 MG PO ×3 (10:53→23:26)
[2023-08-31] MEDS: CELEBREX 200 MG PO (10:53)
[2023-08-31] MEDS: LIDOCAINE 4% PATCH 2 PATCH TOPICAL (10:53)
[2023-08-31] MEDS: PROTONIX 40 MG PO (10:53)
[2023-08-31] MEDS: WELLBUTRIN XL (24 hour extended release) 150 MG PO (10:56)
[2023-08-31] MEDS: NEURONTIN 300 MG PO ×3 (10:56→23:26)
[2023-08-31] MEDS: COLACE PO ×2 (10:57→20:20)
[2023-08-31] MEDS: LIORESAL 10 MG PO ×3 (11:04→20:25)
--- NOTE | 2023-08-31 14:28 | CM ---
Addendum entered by TANESHA Zepeda 08/31/23 14:39:
Spoke to dg. Patient broke her neck 5 years ago and reports patient needs to keep moving or gets stiff. She went to [place] after that neck injury. SHe fell out of bed in past and got brain bleeds.
The third hip surgery was in March or at [facility] with a [facility] physician.
Dgtr concerned about figuring out what is causing this 3 UTI in few weeks.
Dgtr concerned if patient just sits she will decline in function.
Addendum entered by TANESHA Zepeda 08/31/23 14:32:
Uses [facility] mail order with delivery to daughter.
[facility] next door to [facility] is option for prescription.
Original Note:
Met with patient who reports she lives at [facility] in [place]. SHe gets supervised showers twice a week. She uses walker at [facility]. SHe also has cane and wheelchair. She has rails by toilet . she has shower seat and rails. She has PT from [facility] at facility. SHe is still recovering from her 3rd left hip surgery.
PCP Donald Banda
PLAN;return to [facility] with home PT at [facility] from [facility].
--- NOTE | 2023-08-31 15:24 | W.PN.HOSP.TC ---
Today's Communication/Plan
-
PT eval
f/u urine cs report
continue zosyn
Assessment / Plan
Assessment / Plan
Recurrent UTI - drug resistant infection
h/o ESBL UTI
-urine cs earlier this year has grown ESBL organism
-Patient complains of having incomplete voiding and some urinary urgency which are the main symptoms patient have with recurrent UTI
-WBC normal. No fever or chills. Patient was lethargic and weak as well according to family
-UA showing moderate pyuria and bacteriuria
-Maintain patient on Zosyn and previous susceptibility report
-Repeat urine cs this admit
-Have advised patient strongly to follow-up with urology to have urodynamic study as possibly contributing factor to recurrent UTI
# Anemia of chronic disease
-Hemoglobin stable at 9.8
-No active bleeding
-Continue to monitor
#COPD, no acute exacerbation
-Continue Fluticasone
#Hypothyroidism
-Continue levothyroxine
#Anxiety/Depression
-continue Wellbutrin
#fibromyalgia/Chronic Pain Syndrome
-continue Baclofen, oxy,tylenol and lidocaine patich
#GERD
-Continue Protonix
DVT proph: lovenox
Code Status: Full Code
Anticipated Discharge: Within 24 hours
Subjective/Interval History
-
Date of Service: August 31, 2023
No complaints overnight except some lower abdominal discomfort
No fever/chills
Objective Data
-
Labs:
Laboratory Results
08/31/23
05:28
WBC 7.8
Hgb 9.4 L
Hct 29.2 L
Plt Count 298 D
Sodium 136
Potassium 4.1
Chloride 103
Carbon Dioxide 23
BUN 16
Creatinine 0.5 L
Glucose 89
Calcium 9.0
Vital Signs:
Vital Signs
Temp Pulse Resp BP Pulse Ox
98.1 F 72 16 116/60 94
08/31/23 08:02 08/31/23 08:20 08/31/23 08:20 08/31/23 08:02 08/31/23 08:20
I&O
08/30/23 08/31/23 09/01/23
06:59 06:59 06:59
Intake Total 340 / 340
Balance 340 / 340
Review of Systems
-
Respiratory: Reports No Symptoms
Cardiac: Reports No Symptoms
Abdomen/GI: Reports No Symptoms
Physical Exam
-
General: No Apparent Distress and Cachectic
HEENT: Negative Oxygen
Respiratory: Clear to Auscultation; Negative Wheezes
Cardiac: Regular Rhythm and S1/S2; Negative Murmur
GI: Soft, Nontender, Nondistended and Normal Bowel Sounds
Musculoskeletal: No Edema
Neuro: Awake, Alert and No Motor Deficits
Psych: Calm
[2023-08-31 16:00] VITALS: BP 125/69
[2023-08-31] MEDS: SYNTHROID 112 MCG PO (20:21)
[2023-08-31 23:35] VITALS: BP 100/58
[2023-09-01] MEDS: ZOSYN 50 IV ×2 (05:29→12:29)
[2023-09-01 06:56] LABS: Hematocrit 29.7 % (37.0-47.0); Hemoglobin 9.5 g/dL (12.0-16.0); Mean Corpuscular Hgb 24.4 pg (27.0-31.0); Mean Corpuscular Volume 76.3 fL (81.0-99.0); Mean Platelet Volume 9.8 fL (7.4-10.4); Platelet Count 301 10^3/uL (130-400); Red Blood Cell Count 3.89 10^6/uL (4.20-5.40); Red Cell Dist. Width 19.3 % (11.5-14.5); White Blood Cell Count 6.2 10^3/uL (4.8-10.8)
[2023-09-01 07:50] VITALS: BP 120/64
[2023-09-01] MEDS: ADVAIR HFA 115/21 MCG INHALER 2 PUFF INH (08:16)
[2023-09-01 08:17] LABS: Blood Urea Nitrogen 16 mg/dl (7-17); Calcium 8.9 mg/dl (8.4-10.2); Carbon Dioxide 24 mmol/L (22-30); Chloride 107 mmol/L (98-107); Estimated Creatinine Clearance 54 ml/min; Glucose 90 mg/dl (70-99); Potassium 4.4 mmol/L (3.5-5.1); Sodium 141 mmol/L (135-145); eGFR > 60.00
[2023-09-01] MEDS: COLACE 100 MG PO (09:37)
[2023-09-01] MEDS: TYLENOL 500 MG PO ×2 (09:37→14:36)
[2023-09-01] MEDS: LIORESAL 10 MG PO ×2 (09:37→12:30)
[2023-09-01] MEDS: LIDOCAINE 4% PATCH 1 PATCH TOPICAL (09:37)
[2023-09-01] MEDS: PROTONIX 40 MG PO (09:38)
[2023-09-01] MEDS: NEURONTIN 300 MG PO ×2 (09:38→14:36)
[2023-09-01] MEDS: DITROPAN 5 MG PO (09:38)
[2023-09-01] MEDS: CELEBREX 200 MG PO (09:38)
[2023-09-01] MEDS: WELLBUTRIN XL (24 hour extended release) 150 MG PO (09:38)
--- NOTE | 2023-09-01 11:25 | CM ---
Addendum entered by Maira Constantino 09/01/23 13:45:
Can referral sent via all scripts and CM called again to [facility] to request again response. Please call response to [phone]/ fax [phone]
Original Note:
Patient seen at bedside. Patient for discharge to [facility] today. VM left for nursing at facility, no answer. CM spoke with patient castro who requested patient complete IMM and that she will be here to picking supervisor her mother at 3pm at the emergency
room door. CM will update nursing and request Can PT/OT referral from Physician for [facility]> CM will continue to follow for discharge planning needs.
Plan; return to personal care with daughter assistance.
--- NOTE | 2023-09-01 14:53 | W.PN.HOSP.TC ---
Today's Communication/Plan
-
d/c home
Assessment / Plan
Assessment / Plan
Recurrent UTI - Ecoli
h/o ESBL Ecoli UTI
-urine cs earlier this year has grown ESBL organism
-Patient complains of having incomplete voiding and some urinary urgency which are the main symptoms patient have with recurrent UTI
-WBC normal. No fever or chills. Patient was lethargic and weak as well according to family
-UA showing moderate pyuria and bacteriuria
-Repeat urine culture showing E. coli partially sensitive to antibiotic. Based on susceptibility patient to be transition to oral Levaquin for 3 more days at discharge
-Have advised patient strongly to follow-up with urology to have urodynamic study as possibly contributing factor to recurrent UTI
# Anemia of chronic disease
-Hemoglobin stable at 9.8
-No active bleeding
-Continue to monitor
#COPD, no acute exacerbation
-Continue Fluticasone
#Hypothyroidism
-Continue levothyroxine
#Anxiety/Depression
-continue Wellbutrin
#fibromyalgia/Chronic Pain Syndrome
-continue Baclofen, oxy,tylenol and lidocaine patich
#GERD
-Continue Protonix
DVT proph: lovenox
Code Status: Full Code
More than 30 minutes spent in discharge including
Final examination of the patient
Summarizing hospital stay
Instructions for continuing care to all relevant caregivers
Preparation of discharge records, prescriptions, and referral forms
Total time spent (in minutes): 36 mins
Anticipated Discharge: Today
Subjective/Interval History
-
Date of Service: September 01, 2023
Denies of having any problems overnight
no other issues
Objective Data
-
Labs:
Laboratory Results
09/01/23
06:46
WBC 6.2
Hgb 9.5 L
Hct 29.7 L
Plt Count 301
Sodium 141
Potassium 4.4
Chloride 107
Carbon Dioxide 24
BUN 16
Creatinine 0.5 L
Glucose 90
Calcium 8.9
Vital Signs:
Vital Signs
Temp Pulse Resp BP Pulse Ox
97.8 F 82 16 120/64 98
09/01/23 07:50 09/01/23 08:18 09/01/23 08:18 09/01/23 07:50 09/01/23 08:18
I&O
08/31/23 09/01/23 09/02/23
06:59 06:59 06:59
Intake Total 340 / 340 340 / 340
Balance 340 / 340 340 / 340
Review of Systems
-
Respiratory: Reports No Symptoms
Cardiac: Reports No Symptoms
Abdomen/GI: Reports No Symptoms
Physical Exam
-
General: No Apparent Distress and Cachectic
HEENT: Negative Oxygen
Respiratory: Clear to Auscultation; Negative Wheezes
Cardiac: Regular Rhythm and S1/S2; Negative Murmur
GI: Soft, Nontender, Nondistended and Normal Bowel Sounds
Musculoskeletal: No Edema
Neuro: Awake, Alert and No Motor Deficits
Psych: Calm
[2023-09-01 15:12] VITALS: BP 129/69
--- NOTE | 2023-09-01 18:20 | W.DCSUMMARY ---
Discharge Summary
Discharge Data
Date of Admission: 08/30/23
Date of Discharge: 09/01/23
-
Pending Results: No
Hospital Course
Discharging Physician : Dr Christofer Escoto
Disposition : [facility]
Primary care physician : Dr Donald Walker
Principal Discharge diagnosis :
Posterior drug-resistant Escherichia coli urinary tract infection
Chronic Discharge diagnosis :
History of extended spectrum beta-lactamase producing Escherichia coli urinary tract infection
Anemia of chronic disease
Chronic obstructive pulmonary disease
Hypothyroidism
Anxiety/depression
Fibromyalgia
Chronic pain syndrome
Gastroesophageal reflux disease
Hospital Course :
Patient is a 77-year-old female with above-mentioned past medical history came to ER for having difficulty with voiding. Patient had some urinary urgency as well. Patient reported of having recurrent UTI in past with history of drug-resistant UTI
as well. Patient felt of coming down with a repeat episode of UTI. Patient was also felt to be weak and lethargic by family. No overt signs of sepsis in ER. Due to history of drug-resistant UTI patient was started on broad-spectrum antibiotic
and cultures were collected. Patient urine culture later grew E. coli which was partially sensitive to oral antibiotics. Patient was discharged on course of oral Levaquin therapy. Patient some of the symptoms being attributed to UTI are likely
from urinary incontinence and bladder dysfunction. I have strongly recommended for patient to be followed by urologist for urodynamic studies. Patient should also be considered for other treatment for prophylaxis of recurrent UTI. Patient is at
high risk of developing multidrug-resistant UTI and unnecessary antibiotic exposure and UTI treatment needs to be avoided.
Important imaging findings :
None
Procedure findings :
None
Discharge Plan
-
Patient Disposition: Assisted Living
Discharge Diagnosis/Procedures: Recurrent UTI, Urinary incotinence
Condition: Fair
Diet: Regular
Activity: As tolerated
Driving Restrictions: As prior to admission
Bathing Restrictions: OK to Shower
Activity Restrictions/Additional Instructions:
Please follow up with Dr Marta Lomas for urodynamic studies
Referrals:
Marta Lomas DO [Active] - in one to two weeks
Donald Walker DO [Family Provider] - in one week
Prescriptions:
New
levofloxacin 750 mg tablet
750 mg PO DAILY 3 Days Qty: 3 0RF
Continued
fluticasone propion-salmeterol 250-50 mcg/dose blister with device
1 inh INHALATION R BID
oxybutynin chloride 10 mg tablet extended release 24hr
10 mg PO DAILY
levothyroxine 112 mcg tablet
112 mcg PO HS
pantoprazole 40 mg Tablet,Delayed Release (Dr/Ec)
40 mg PO DAILY
duloxetine 30 mg Capsule,Delayed Release(Dr/Ec)
90 mg PO DAILY Qty: 0 0RF
docusate sodium 100 mg Capsule
100 mg PO BID Qty: 0 0RF
polyethylene glycol 3350 17 gram Powder In Packet
17 g PO DAILY Qty: 0 0RF
cholecalciferol (vitamin D3) [Vitamin D3] 10 mcg (400 unit) Tablet
400 units PO DAILY Qty: 0 0RF
acetaminophen 500 mg Tablet
1,000 mg PO Q8H Qty: 0 0RF
celecoxib 200 mg Capsule
200 mg PO DAILY Qty: 30 0RF
gabapentin 300 mg Capsule
300 mg PO Q8 Qty: 60 0RF
lidocaine [Aspercreme (lidocaine)] 4 % adhesive patch,medicated
1 patch topical DAILY
aspirin 81 mg capsule
81 mg PO DAILY Qty: 30 0RF
lorazepam 0.5 mg Tablet
0.5 mg PO HSPRN PRN (Reason: Anxiety / Insomnia) Qty: 7 0RF
acetaminophen [Tylenol] 325 mg Tablet
650 mg PO Q6HPRN PRN (Reason: mild pain)
bupropion HCl 150 mg Tablet Extended Release 24 Hr
150 mg PO DAILY
baclofen 10 mg tablet
10 mg PO TID@0800,1400,2000
oxycodone 5 mg tablet
5 mg PO Q8HPRN PRN (Reason: moderate pain)
Discontinued
cefdinir 300 mg capsule
300 mg PO BID 7 Days Qty: 14 0RF
Discharge Orders:
Discharge Patient (As Directed); Ordered 09/01/23
Ordered By: Christofer Escoto
Discharge Date and Time
Discharge Date/Time: 09/01/23 15:24
Print Language: CZECH
== END 2023-09-01 15:24 | disposition home or self-care (01) | DRG 690 ==
LOC: 4 WEST ACU 19:14
PROVIDERS: Registered Nurse; ADMITTING PHYSICIAN Hospitalist; EMERGENCY PHYSICIAN Emergency Medicine; FAMILY PHYSICIAN Family Medicine Sports Medicine
DX: N39.0 Urinary tract infection, site not specified (principal); Z16.30 Resistance to unspecified antimicrobial drugs; E03.9 Hypothyroidism, unspecified; K21.9 Gastro-esophageal reflux disease without esophagitis; K58.9 Irritable bowel syndrome, unspecified; F41.0 Panic disorder [episodic paroxysmal anxiety]; F32.A Depression, unspecified; E78.00 Pure hypercholesterolemia, unspecified; R32 Unspecified urinary incontinence; M79.7 Fibromyalgia; D63.8 Anemia in other chronic diseases classified elsewhere; J44.9 Chronic obstructive pulmonary disease, unspecified; G89.4 Chronic pain syndrome; B96.20 Unspecified Escherichia coli [E. coli] as the cause of diseases classified elsewhere; R39.15 Urgency of urination; Z96.641 Presence of right artificial hip joint; Z87.442 Personal history of urinary calculi; Z87.891 Personal history of nicotine dependence; Z88.0 Allergy status to penicillin; Z88.8 Allergy status to other drugs, medicaments and biological substances; Z91.041 Radiographic dye allergy status; Z91.040 Latex allergy status; Z87.440 Personal history of urinary (tract) infections; Z79.890 Hormone replacement therapy; Z79.82 Long term (current) use of aspirin; Z79.891 Long term (current) use of opiate analgesic; Z79.1 Long term (current) use of non-steroidal anti-inflammatories (NSAID); Z79.51 Long term (current) use of inhaled steroids
CPT/HCPCS: 51798; 80048; 80053; 81003; 81015; 85025; 85027; 87070; 87071; 87086; 87186; 94640; 96365; 97162; 97166; 99285

== ENCOUNTER → 2023-09-29 13:35 | Outpatient (REF) | payer MEDICARE, OTHER, SELFPAY ==
[2023-09-29 14:36] LABS: Urine Albumin Negative (Neg - Trace); Urine Bilirubin Negative (Negative); Urine Character Slightly Cloudy (Clear); Urine Color Yellow; Urine Glucose Negative (Negative); Urine Ketone Negative (Negative); Urine Leukocyte 2+ (Negative); Urine Nitrite Positive (Negative); Urine Occult Blood Negative (Negative); Urine Urobilinogen Negative (Neg - 1+); Urine pH 6.5 (5.0-9.0)
[2023-09-29 15:11] LABS: Urine Bacteria Many (Negative); Urine Red Blood Cell 0-2 /HPF (0-2)
[2023-09-29 15:12] LABS: Urine White Cell 50-60 /HPF (0-5)
== END ==
LOC: OLABSOL 13:35
PROVIDERS: ATTENDING PHYSICIAN Nurse Practitioner Gerontology
DX: N39.0 Urinary tract infection, site not specified (principal)
CPT/HCPCS: 81003; 81015; 87077; 87086; 87186

== ENCOUNTER → 2023-11-09 17:54 | Outpatient (REF) | payer MEDICARE, OTHER, SELFPAY ==
[2023-11-10 11:49] LABS: % Basophils 0.8 % (0-2); % Eosinophils 3.3 % (0-6); % Immature Granulocytes 0.2 % (0-0.5); % Monocytes 10.3 % (1.7-9.3); % Neutrophils 54.4 % (42.2-75.2); Absolute Basophils 0.1 10^3/uL (0-0.2); Absolute Eosinophils 0.2 10^3/uL (0-0.7); Absolute Lymphocytes 2.1 10^3/uL (1.2-3.4); Absolute Monocytes 0.7 10^3/uL (0.1-0.6); Absolute Neutrophils 3.6 10^3/uL (1.4-6.5); Hematocrit 34.5 % (37.0-47.0); Hemoglobin 10.8 g/dL (12.0-16.0); Mean Corp Hgb Conc. 31.3 g/dL (33.0-37.0); Mean Corpuscular Hgb 26.9 pg (27.0-31.0); Mean Corpuscular Volume 85.8 fL (81.0-99.0); Mean Platelet Volume 13.9 fL (7.4-10.4); Nucleated Red Blood Cells % 0 %; Platelet Count 331 10^3/uL (130-400); Red Blood Cell Count 4.02 10^6/uL (4.20-5.40); Red Cell Dist. Width 15.5 % (11.5-14.5); White Blood Cell Count 6.6 10^3/uL (4.8-10.8)
[2023-11-10 12:04] LABS: ALT (SGPT) 10 U/L (0-35); AST (SGOT) 23 U/L (14-36); Albumin 3.9 g/dl (3.5-5.0); Alkaline Phosphatase 67 U/L (38-126); Blood Urea Nitrogen 18 mg/dl (7-17); Calcium 9.3 mg/dl (8.4-10.2); Carbon Dioxide 26 mmol/L (22-30); Chloride 104 mmol/L (98-107); Glucose 82 mg/dl (70-99); Iron 41 ug/dl (37-170); Potassium 4.1 mmol/L (3.5-5.1); Sodium 137 mmol/L (135-145); Total Bilirubin 0.3 mg/dl (0.2-1.3); Total Protein 6.4 g/dl (6.3-8.2); eGFR > 60.00
[2023-11-10 12:14] LABS: Percent Saturation 12 % (20-50); Total Iron Binding Capacity 332 ug/dl (265-497)
[2023-11-10 12:27] LABS: Ferritin 13.5 ng/ml (11.1-264.0)
[2023-11-10 12:31] LABS: Urine Albumin Trace (Neg - Trace); Urine Bilirubin Negative (Negative); Urine Character Clear (Clear); Urine Color Yellow; Urine Glucose Negative (Negative); Urine Ketone Negative (Negative); Urine Leukocyte 2+ (Negative); Urine Nitrite Positive (Negative); Urine Occult Blood Negative (Negative); Urine Specific Gravity 1.025 (<1.030); Urine Urobilinogen Negative (Neg - 1+)
[2023-11-10 14:49] LABS: Urine Bacteria Moderate (Negative); Urine Red Blood Cell None Seen /HPF (0-2); Urine Squamous Cell >30 /LPF (Few); Urine White Cell >100 /HPF (0-5)
[2023-11-12 10:46] LABS: Transferrin 262 mg/dL (200-360)
== END ==
LOC: OLABSOL 17:54
PROVIDERS: ATTENDING PHYSICIAN Nurse Practitioner Gerontology
DX: N39.0 Urinary tract infection, site not specified (principal); D64.9 Anemia, unspecified; R94.4 Abnormal results of kidney function studies
CPT/HCPCS: 36415; 80053; 81003; 81015; 82728; 83540; 83550; 84466; 85025; 87077; 87086; 87186

== ENCOUNTER → 2023-12-06 17:35 | Outpatient (REF) | payer MEDICARE, OTHER, SELFPAY ==
[2023-12-06 18:50] LABS: Urine Albumin Trace (Neg - Trace); Urine Bilirubin Negative (Negative); Urine Character Very Cloudy (Clear); Urine Color Yellow; Urine Glucose Negative (Negative); Urine Ketone Negative (Negative); Urine Leukocyte 2+ (Negative); Urine Nitrite Positive (Negative); Urine Occult Blood Negative (Negative); Urine Urobilinogen Negative (Neg - 1+); Urine pH 6.5 (5.0-9.0)
[2023-12-06 19:07] LABS: Urine Bacteria Moderate (Negative); Urine Red Blood Cell 0-2 /HPF (0-2); Urine White Cell >100 /HPF (0-5)
== END ==
LOC: OLABSOL 17:35
PROVIDERS: ATTENDING PHYSICIAN Nurse Practitioner Gerontology
DX: N39.0 Urinary tract infection, site not specified (principal)
CPT/HCPCS: 81003; 81015; 87086; 87088; 87186

== ENCOUNTER 2024-01-04 22:59 | Inpatient (IN) | payer MEDICARE, OTHER, SELFPAY ==
--- NOTE | 2024-01-04 18:28 | ED.GENMED ---
ED Provider Triage
<Marianela Garcia PA-C - Last Filed: 01/04/24 18:30>
-
Patient seen by provider in Triage?: Seen in Triage
Attestation: A medical screening examination has been initiated by a qualified medical provider. Based on the assessment performed at this time, it has been determined that an emergent medical condition may exist and the patient has been informed
that further medical evaluation and possible additional diagnostic testing may be needed.
HPI: 78yoF here after a fall. Tripped over walker. No head strike. C/o L thigh pain. No blood thinners.
GENERAL: Alert , in no apparent distress
EYE: No visual abnormalities.
NECK: Trachea midline
ENT: No visible abnormalities.
LUNGS: No acute respiratory distress
NEUROLOGICAL: Alert and oriented
SKIN: Skin intact. No visible changes.
MUSCULOSKELETAL: Moving extremities normally
PSYCH: Normal and appropriate interaction.
This is a medical evaluation conducted in person to initiate diagnostic evaluation and provide initial therapeutics. Please see further documentation by the treating clinician.
X-rays of L hip and femur ordered.
History of Present Illness
<Marianela Garcia PA-C - Last Filed: 01/04/24 18:30>
General
Chief Complaint: Fall
Time Seen by Provider: 01/04/24 19:02
<NITIN Guillaume - Last Filed: 01/04/24 21:50>
General
Source: patient
Exam Limitations: none
Nursing documentation reviewed up to this point in time: agreed with
History of Present Illness
History of Present Illness:
Patient is a 78-year-old female who presents to the ER from [facility] assisted [facility]. Patient was using her walker and tripped and hit her left thigh into the floor. She was assisted up by staff at assisted living facility and brought here by
daughter. Patient denies hitting head. Patient complains of left thigh pain. No other injuries.
Past History
<Marianela Garcia PA-C - Last Filed: 01/04/24 18:30>
Past History
ED Past Medical History: Hypercholesterolemia, Psychiatric (Anxiety/depression/panic disorder) and Other (Kidney stones)
ED Past Surgical History: Gynecological, Orthopedic (Bunionectomy with hammertoe repair, left patellar fracture, right hip replacement, fusion C3-4-5 and 6), Tonsilectomy and Other (Patient has functional quadriplegia with spasticity, left leg brace)
Social History
Tobacco: Former smoker
Alcohol: None
Personal:
Living: with family
Review of Systems
<NITIN Guillaume - Last Filed: 01/04/24 21:50>
Review of Systems
Allergies reviewed?: Yes
All Other Systems: ROS reviewed and negative except as documented in HPI and ROS
Constitutional: Reports no symptoms
ABD/GI: Reports no symptoms
Musculoskeletal: Reports other (left thigh pain )
Skin: Reports no symptoms
Psychiatric: Reports no symptoms
Phy Exam
<NITIN Guillaume - Last Filed: 01/04/24 21:50>
General Physical Exam
General Presentation: no apparent distress
General age: appears stated age
General Skin: warm and dry
General Habitus: elderly
General Mental: alert
Cardiovascular Exam
Cardiovascular Exam: regular rate/rhythm, no murmur and normal peripheral pulses
Pulmonary Exam
Pulmonary Exam: lungs clear and no respiratory distress
Neurological Exam
Neurological Exam: alert and oriented x3
Musculoskeletal Exam
Musculoskeletal Exam: other (lle with strong pulses tender throughout the distal femur; pain with range of motion)
Skin Exam
Skin Exam: normal color and warm/dry
Psychiatric Exam
Psychiatric Exam: normal mood/affect
Course
<Marianela Garcia PA-C - Last Filed: 01/04/24 18:30>
Orders/Labs/Results
Orders:
Orders
01/04/24 18:29
CR Femur - Left Min 2 Vw Urgent
Comment:
Reason For Exam: fall
Hip, Left 2-3 Views [CR Hip - LT w/wo Pel 2-3 Vw*] Urgent
Comment:
Reason For Exam: fall
Include a pelvis x-ray?: Yes
01/04/24 19:59
IV Insert/Care/Rem.- Treatment PRN
Morphine Sulfate 2 mg IV NOW STA
01/04/24 20:37
Complete Blood Count/With Diff Urgent
Comprehensive Metabolic Panel Urgent
Abnormal Lab Results
01/04/24
20:37
Hgb 11.1 L g/dL
(12.0-16.0)
Hct 35.1 L %
(37.0-47.0)
MCV 79.2 L fL
(81.0-99.0)
MCH 25.1 L pg
(27.0-31.0)
MCHC 31.6 L g/dL
(33.0-37.0)
RDW 15.0 H %
(11.5-14.5)
MPV 10.5 H fL
(7.4-10.4)
Absolute Neuts (auto) 8.0 H 10^3/uL
(1.4-6.5)
Neutrophils % 76.3 H %
(42.2-75.2)
Lymphocytes % 14.9 L %
(20.5-51.1)
01/04/24 20:37
01/04/24 20:37
Vital Signs
Initial and Last Documented VS:
Initial Vital Signs
Temp Pulse Resp BP Pulse Ox
97.9 F 66 18 92/59 98
01/04/24 18:29 01/04/24 18:29 01/04/24 18:29 01/04/24 18:29 01/04/24 18:29
Last Documented Vital Signs
Temp Pulse Resp BP Pulse Ox
97.9 F 75 16 143/85 98
01/04/24 18:29 01/04/24 20:00 01/04/24 20:00 01/04/24 20:00 01/04/24 20:00
<NITIN Guillaume - Last Filed: 01/04/24 21:50>
Orders/Labs/Results
Orders:
Orders
01/04/24 18:29
CR Femur - Left Min 2 Vw Urgent
Comment:
Reason For Exam: fall
Hip, Left 2-3 Views [CR Hip - LT w/wo Pel 2-3 Vw*] Urgent
Comment:
Reason For Exam: fall
Include a pelvis x-ray?: Yes
01/04/24 19:59
IV Insert/Care/Rem.- Treatment PRN
Morphine Sulfate 2 mg IV NOW STA
01/04/24 20:37
Complete Blood Count/With Diff Urgent
Comprehensive Metabolic Panel Urgent
Abnormal Lab Results
01/04/24
20:37
Hgb 11.1 L g/dL
(12.0-16.0)
Hct 35.1 L %
(37.0-47.0)
MCV 79.2 L fL
(81.0-99.0)
MCH 25.1 L pg
(27.0-31.0)
MCHC 31.6 L g/dL
(33.0-37.0)
RDW 15.0 H %
(11.5-14.5)
MPV 10.5 H fL
(7.4-10.4)
Absolute Neuts (auto) 8.0 H 10^3/uL
(1.4-6.5)
Neutrophils % 76.3 H %
(42.2-75.2)
Lymphocytes % 14.9 L %
(20.5-51.1)
01/04/24 20:37
01/04/24 20:37
Vital Signs
Initial and Last Documented VS:
Initial Vital Signs
Temp Pulse Resp BP Pulse Ox
97.9 F 66 18 92/59 98
01/04/24 18:29 01/04/24 18:29 01/04/24 18:29 01/04/24 18:29 01/04/24 18:29
Last Documented Vital Signs
Temp Pulse Resp BP Pulse Ox
97.9 F 75 16 143/85 98
01/04/24 18:29 01/04/24 20:00 01/04/24 20:00 01/04/24 20:00 01/04/24 20:00
<NITIN Guillaume - Last Filed: 01/04/24 21:50>
MDM/Problems Addressed
MDM/Problems Addressed:
Patient is a 78-year-old female from assisted living was walking with her walker and fell complains of left femur pain. She is not on blood thinners and did not hit her head. There is a nondisplaced femur fracture distal to her previous hip
replacement. Patient had this left hip replacement revised by [facility] within the past year.
Patient has strong pulses medicated for pain.
Patient will need Ortho evaluation. She is in no acute distress after pain medication vital signs are stable unremarkable labs admitted to the hospitalist service.
Discussed with Ortho on-call however will need to be seen by [facility].
Ortho test kitchen home economist made aware however also notified ortho [facility] faulkner via tiger text.
<NITIN Guillaume - Last Filed: 01/04/24 21:50>
*Radiology
Radiology exam reviewed: radiology read reviewed
*Pulse Oximetry
Patient hypoxic: no
*Critical Care Note
Total Time (30-74mins, 75-104mins- exclusive of procedures): Not Applicable
ED Attending Note
Mary Carmenlt;Marianela Garcia PA-C - Last Filed: 01/04/24 18:30>
-
Portions of this chart may have been created with voice recognition software.� Occasional wrong word or��sound alike� substitutions may have occurred due to the inherent limitations of voice recognition software.
Discharge Plan
Departure
Patient Disposition: Admit
Date of Disposition: 01/04/24
Time of Disposition: 21:42
Admit to: Med/Surg
Admit to doctor: hospitalist
Presentation/result/management discussed w/ accepting MD/DO: Hospitalist
Patient with high blood pressure during this ER visit?: Yes
Condition: Fair
Covid-19: Not Applicable
Discharge Problem:
Closed femur fracture
Prescriptions:
No Action
fluticasone propion-salmeterol 250-50 mcg/dose blister with device
1 inh INHALATION R BID
oxybutynin chloride 10 mg tablet extended release 24hr
10 mg PO DAILY
levothyroxine 112 mcg tablet
112 mcg PO HS
pantoprazole 40 mg Tablet,Delayed Release (Dr/Ec)
40 mg PO DAILY
duloxetine 30 mg Capsule,Delayed Release(Dr/Ec)
90 mg PO DAILY Qty: 0 0RF
docusate sodium 100 mg Capsule
100 mg PO BID Qty: 0 0RF
polyethylene glycol 3350 17 gram Powder In Packet
17 g PO DAILY Qty: 0 0RF
cholecalciferol (vitamin D3) [Vitamin D3] 10 mcg (400 unit) Tablet
400 units PO DAILY Qty: 0 0RF
acetaminophen 500 mg Tablet
1,000 mg PO Q8H Qty: 0 0RF
celecoxib 200 mg Capsule
200 mg PO DAILY Qty: 30 0RF
gabapentin 300 mg Capsule
300 mg PO Q8 Qty: 60 0RF
lidocaine [Aspercreme (lidocaine)] 4 % adhesive patch,medicated
1 patch topical DAILY
aspirin 81 mg capsule
81 mg PO DAILY Qty: 30 0RF
lorazepam 0.5 mg Tablet
0.5 mg PO HSPRN PRN (Reason: Anxiety / Insomnia) Qty: 7 0RF
acetaminophen [Tylenol] 325 mg Tablet
650 mg PO Q6HPRN PRN (Reason: mild pain)
bupropion HCl 150 mg Tablet Extended Release 24 Hr
150 mg PO DAILY
baclofen 10 mg tablet
10 mg PO TID@0800,1400,2000
oxycodone 5 mg tablet
5 mg PO Q8HPRN PRN (Reason: moderate pain)
levofloxacin 750 mg tablet
750 mg PO DAILY 3 Days Qty: 3 0RF
Referrals:
UNKNOWN - PT DOES,NOT KNOW [Family Provider] -
Interventions
Interventions:
*Risk Screen - Suicide Last Done: 01/04/24 18:29
*General Assessment Last Done: 01/04/24 18:29
*Neglect/Abuse Screening Last Done: 01/04/24 18:29
ED- Fall Risk Assessment Last Done: 01/04/24 19:32
*ED COVID-19 Vaccine History Last Done: 01/04/24 19:32
ED-Musculoskeletal Assessment Last Done: 01/04/24 19:32
ED- Neurological Assessment Last Done: 01/04/24 19:32
ED-Skin Assessment Last Done: 01/04/24 19:32
Discharge Date and Time
Print Language: TURKISH
[2024-01-04 18:29] VITALS: BP 92/59
[2024-01-04 20:00] VITALS: BP 143/85
[2024-01-04] MEDS: MORPHINE SULFATE 2 MG IV (20:12)
[2024-01-04 20:15] VITALS: BMI 23.0
[2024-01-04 21:00] LABS: % Basophils 0.8 % (0-2); % Eosinophils 1.5 % (0-6); % Immature Granulocytes 0.4 % (0-0.5); % Lymphocytes 14.9 % (20.5-51.1); % Monocytes 6.1 % (1.7-9.3); % Neutrophils 76.3 % (42.2-75.2); Absolute Basophils 0.1 10^3/uL (0-0.2); Absolute Eosinophils 0.2 10^3/uL (0-0.7); Absolute Lymphocytes 1.6 10^3/uL (1.2-3.4); Absolute Monocytes 0.6 10^3/uL (0.1-0.6); Hematocrit 35.1 % (37.0-47.0); Hemoglobin 11.1 g/dL (12.0-16.0); Mean Corp Hgb Conc. 31.6 g/dL (33.0-37.0); Mean Corpuscular Hgb 25.1 pg (27.0-31.0); Mean Corpuscular Volume 79.2 fL (81.0-99.0); Mean Platelet Volume 10.5 fL (7.4-10.4); Nucleated Red Blood Cells % 0 %; Platelet Count 345 10^3/uL (130-400); Red Blood Cell Count 4.43 10^6/uL (4.20-5.40); White Blood Cell Count 10.5 10^3/uL (4.8-10.8)
[2024-01-04 21:25] LABS: ALT (SGPT) 18 U/L (0-35); AST (SGOT) 28 U/L (14-36); Albumin 4.5 g/dl (3.5-5.0); Alkaline Phosphatase 68 U/L (38-126); Blood Urea Nitrogen 17 mg/dl (7-17); Calcium 9.5 mg/dl (8.4-10.2); Carbon Dioxide 24 mmol/L (22-30); Chloride 104 mmol/L (98-107); Estimated Creatinine Clearance 50 ml/min; Glucose 97 mg/dl (70-99); Potassium 4.5 mmol/L (3.5-5.1); Sodium 141 mmol/L (135-145); Total Bilirubin 0.3 mg/dl (0.2-1.3); Total Protein 7.1 g/dl (6.3-8.2); eGFR > 60.00
--- NOTE | 2024-01-04 22:03 | HPS.HSE ---
Family Physician
-
Family Physician: NOT KNOW UNKNOWN - PT DOES
Chief Complaint
-
fall
History of Present Illness
78yoF with PMH for hypothyroidism,anxiety, UTI presented to us after a fall. patient was walking holding walker with one hand and phone on the other hand,she lost the balance and fell over with the walker. denied striking head on th floor. denied
ALICEA, dizzy or syncopal episode. denied fever, chills, chest pain,sob. denied abdominal pain,n,v,d. denied dysuria or hematuria. patient stated she fell on her left leg and since then left leg pain and not able to walk or stand.
X ray with nondisplaced acute fracture of the midshaft of the left femur. New.received morphine in ER. admitting for further management.
Medical History
Past Medical History
Past Medical History: Reports Other
Additional Past Medical History:
fibromylagia
IBS
gERG
osteoarthritis
Past Surgical History: Reports Other
Additional Past Surgical History:
b/l breast fibroadenomas removal
cataracts surgery
right elbow tendon repair
tubal ligation
right hip replacement
bunionectomy
left hip ORIF
Social History
Tobacco: Non-smoker
Alcohol: None
Drug: None
Personal: Single
Living: Assisted Living
Family History
Family History: Not pertinent
Allergies / Home Medications
Allergies reflects when Allergies were last updated in [employer].
Home Medications with original date entered in [employer]
Allergy/Medication List:
Allergies
Allergy/AdvReac Type Severity Reaction Status Date / Time
apixaban [From Eliquis] Allergy Blood in Verified 01/04/24 18:31
urine
Iodinated Contrast Media Allergy 'rendered Verified 01/04/24 18:31
[Iodinated Contrast Media - me
IV Dye] uconscious'
iodine Allergy UNKNOWN Verified 01/04/24 18:31
'SENSITIVE'
Latex, Natural Rubber Allergy Rash Verified 01/04/24 18:31
penicillin G Allergy diarrhea Verified 01/04/24 18:31
propofol Allergy SEE BELOW Verified 01/04/24 18:31
Home Medications
levothyroxine 112 mcg tablet 112 mcg PO HS Thyroid 04/13/22
oxybutynin chloride 10 mg tablet,extended release 24 hr 10 mg PO DAILY Urinary issue 04/13/22
pantoprazole 40 mg tablet,delayed release 40 mg PO DAILY Gastrointestinal issue 04/13/22
celecoxib 200 mg capsule 200 mg PO DAILY #30 caps 04/27/22
gabapentin 300 mg capsule 300 mg PO Q8 #60 caps 04/27/22
baclofen 10 mg tablet 10 mg PO TID@0800,1400,2000 Muscle Spasms 08/30/23
oxycodone 5 mg tablet 5 mg PO Q8HPRN PRN moderate pain 08/30/23
acetaminophen 500 mg tablet 500 mg PO Q8H 01/04/24
docusate sodium 100 mg capsule 100 mg PO DAILY 01/04/24
escitalopram oxalate 10 mg tablet 10 mg PO DAILY 01/04/24
lorazepam 0.5 mg tablet 0.5 mg PO HS 01/04/24
melatonin 10 mg tablet 10 mg PO HS 01/04/24
nitrofurantoin macrocrystal 50 mg capsule 50 mg PO DAILY 01/04/24
Review of Systems
-
Constitutional: Reports No Symptoms
EENT: Reports No Symptoms
Respiratory: Reports No Symptoms
Cardiac: Reports No Symptoms
Abdomen/GI: Reports No Symptoms
: Reports No Symptoms
Musculoskeletal: Reports Other (left thigh pain)
Skin: Reports No Symptoms
Neurological: Reports No Symptoms
Endocrine: Reports No Symptoms
Hematologic/Lymphatic: Reports No Symptoms
Psych: Reports No Symptoms
Physical Exam
Vital Signs
Vital Signs
Temp Pulse Resp BP Pulse Ox
97.9 F 75 16 143/85 98
01/04/24 18:29 01/04/24 20:00 01/04/24 20:00 01/04/24 20:00 01/04/24 20:00
Physical Exam
General: Well Developed, Well Nourished and No Apparent Distress
HEENT: NormoCephalic, Moist mucous membranes and Atraumatic
Respiratory: Clear
Cardiac: S1/S2 and Regular Rhythm; No Murmur or Rub
GI: Soft, Non Tender, Non Distended and Normal Bowel Sounds; No Organomegaly
Rectal: Deferred by Provider
Musculoskeletal: No Clubbing, No Cyanosis, No Edema and Other (pain with range of motion)
Skin: No Rash
Neuro: AO x 3 and Nonfocal/grossly intact
Psych: Calm
Laboratory Results
-
01/04/24 20:37
01/04/24 20:37
Laboratory Results
Total Bilirubin 0.3 mg/dl (0.2-1.3) 01/04/24 20:37
AST 28 U/L (14-36) 01/04/24 20:37
ALT 18 U/L (0-35) 01/04/24 20:37
Alkaline Phosphatase 68 U/L (38-126) 01/04/24 20:37
Data Reviewed
-
Diagnostic Radiology: Report Reviewed by me
Lab Data: Labs Reviewed by me
Impression/Plan
-
#fall with non displaced acute fracture of midshaft of left femur
-orthopedic consulted
-PT/OT consult
-Tylenol, oxy, for pain
-Hip x ray with No acute fracture identified.
-femur x ray with Findings suggesting a nondisplaced acute fracture of the midshaft of the left femur. New
#anemia of chronic disease
-hgb stable at 11.1
-no active bleeding
-ctm
#hxt of UTI
-on nitrofurantoin and oxybutynin
#Anxiety/Depression
-continue citalopram
-lorazepam at hs
-melatonin for sleep
#fibromyalgia/Chronic Pain Syndrome
-continue Baclofen, oxy,Tylenol,Celebrex,gabapentin and lidocaine patich
#hypothyroidism
-levothyroxine continued
#GERD
-Continue Protonix
DVT proph: scd
Code Status: Full Code
[2024-01-04] MEDS: SENOKOT 17.2 MG PO (23:03)
[2024-01-04] MEDS: COLACE 100 MG PO (23:03)
[2024-01-04] MEDS: TYLENOL 500 MG PO (23:03)
[2024-01-04] MEDS: ROXICODONE 5 MG PO (23:03)
[2024-01-04 23:32] VITALS: BP 142/67
[2024-01-05] MEDS: NEURONTIN 300 MG PO ×4 (00:54→23:16)
[2024-01-05 04:00] VITALS: BP 135/75
--- NOTE | 2024-01-05 04:02 | DOWNTIME ---
There was a [employer] Client General Machine Operator Downtime on 12/08/2023 from 0100 to 12/08/2023 at 0300. Downtime documentation of patient's care, including medication administrations, has been reconciled in the electronic record per guidelines. Refer to the
patient's paper chart under the miscellaneous tab to see printed paper medication records and downtime forms.
--- NOTE | 2024-01-05 04:49 | DOWNTIME ---
There was a [employer] Client Ssis Developer Downtime on 01/05/2024 from 0100 to 01/05/2024 at 0355. Downtime documentation of patient's care, including medication administrations, has been reconciled in the electronic record per guidelines. Refer to the
patient's paper chart under the miscellaneous tab to see printed paper medication records and downtime forms.
--- NOTE | 2024-01-05 06:20 | W.PN.UPDATE ---
Update Note
Progress Note Update
Patient seen in conjunction with NITIN. I agree with history and physical. I concur with the assessment and plan unless stated otherwise.
This is a 78-year-old female who has a past medical history of COPD, GERD, hypothyroid, anxiety and depression, with dysfunction prior left hip surgery who presents to the emergency department following a trip and fall with a fracture of the
prosthetic hip. Patient denies any loss of consciousness. Denies any head strike. On arrival in the ED had a normal mental status.
She has stable vital signs and was in no acute distress after pain control. X-ray shows findings suggesting a nondisplaced acute fracture of the midshaft of the left femur. Labs are unremarkable.
Patient with likely new non-displaced left femur mid-shaft fracture.
- admit to medsurg
- ortho consulted but no immediate recs, so regular diet for now
- pain control
- pt evaluation
DVT PPX - lovenox sq
Full Code
--- NOTE | 2024-01-05 07:53 | W.PN.UPDATE ---
Update Note
Progress Note Update
Pt seen and chart reviewed
With fx nondisplaced at tip of femoral component Left
Recommend knee immobilizer all times and NON WB L LE with walker
DVT prophylaxis as well
Have pt f/u with Dr. Clifton Cuevas after discharge from hospital
This is her original surgeon--He is aware
thanks
GGMD
[2024-01-05] MEDS: MACRODANTIN 50 MG PO (10:05)
[2024-01-05] MEDS: CELEBREX 200 MG PO (10:05)
[2024-01-05] MEDS: LEXAPRO 10 MG PO (10:06)
[2024-01-05] MEDS: PROTONIX 40 MG PO (10:06)
[2024-01-05] MEDS: LIORESAL 10 MG PO ×3 (10:07→20:09)
[2024-01-05] MEDS: TYLENOL 500 MG PO ×3 (10:07→21:59)
[2024-01-05] MEDS: COLACE PO (10:07)
[2024-01-05] MEDS: COLACE 100 MG PO ×2 (10:07→20:09)
[2024-01-05] MEDS: SENOKOT 17.2 MG PO ×2 (10:08→20:09)
[2024-01-05] MEDS: DITROPAN 5 MG PO ×2 (10:11→20:09)
[2024-01-05] MEDS: ROXICODONE 5 MG PO ×2 (10:17→18:22)
--- NOTE | 2024-01-05 11:02 | W.PN.HOSP.TC ---
Today's Communication/Plan
-
Analgesia
DVT prophylaxis
PT/OT
NWB LLE with walker
Assessment / Plan
Assessment / Plan
#Acute nondisplaced left femur fracture, midshaft
#Mechanical fall at home
#S/P left hip ORIF previous to hospitalization
-Had a fall at home when she took a hand off of her walker, then tipped over
-Fell onto her left hip/leg with significant pain following; x-ray showing nondisplaced fracture
-Evaluated by orthopedics, recommending left knee immobilizer and NWB LLE with walker
-Current analgesia includes Tylenol/oxycodone/Dilaudid IV
-Will continue to monitor pain level, uptitrate analgesics as needed
-PT/OT for evaluation for SNF
-Continue with DVT prophylaxis
-Patient to follow-up with Dr. Clifton Cuevas at [place]
#Hypothyroidism
-unknown etiology, recent labs well-controlled, stable on levothyroxine 112 mcg
-Currently takes nightly levothyroxine, may change to standard morning dose
#GERD
-no history of PE or erosive disease, home meds include Protonix
-No complaints today
#Iron deficiency anemia
-Hgb baseline near 11, not currently on iron per home med list
-Hemoglobin here 11.1 with slightly microcytic cell volume
-No signs or symptoms of bleeding, will resume iron supplements
DVT prophylaxis: Lovenox
Diet: Regular
CODE STATUS: Full
Anticipated Discharge: 24 - 48 hours
Subjective/Interval History
-
Date of Service: January 05, 2024
Seen and examined at bedside. No acute events admission. AFVSS this morning.
She states that her leg pain is tolerable except for when she moves, with movement it can be excruciating
She denies other complaint such as chest pain, dyspnea, fevers or chills, GI upset, urinary issues, bleeding or bruising, paresthesias or weakness
Objective Data
-
Vital Signs:
Vital Signs
Temp Pulse Resp BP Pulse Ox
97.9 F 80 18 135/75 98
01/04/24 18:29 01/05/24 04:00 01/05/24 04:00 01/05/24 04:00 01/05/24 04:00
Review of Systems
-
History Source: Patient
All other systems: Reviewed and negative
Physical Exam
-
General: No Apparent Distress and Pain
HEENT: Normocephalic, Atraumatic and Moist Mucous Membranes
Respiratory: Clear to Auscultation and Non Labored Respirations; Negative Wheezes, Rales or Rhonchi
Cardiac: Regular Rhythm and S1/S2; Negative Murmur, Rub or Gallop
GI: Soft, Nontender, Nondistended and Normal Bowel Sounds
Musculoskeletal: No Clubbing, No Cyanosis, No Edema and Other (No gross deformity or step-off, left knee immobilizer present; tender to palpate left mid femur)
Skin: Warm and Dry; Negative Rash
Neuro: AO x 3, Nonfocal/Grossly Intact and Central Nerve's Intact
Psych: Calm
Data Reviewed
-
Diagnostic Radiology: Report Reviewed by me and Discussed with Patient
Labs: Labs Reviewed by me and Discussed with Patient
[2024-01-05 11:49] VITALS: BP 148/72; PULSE 75; O2SAT 92
[2024-01-05 15:54] VITALS: BP 124/76
--- NOTE | 2024-01-05 17:26 | CM ---
CM reviewed chart. PT/OT consulted and recommending STR. A few SNF referrals placed via [facility].
[2024-01-05] MEDS: LOVENOX 40 MG SC (18:21)
--- NOTE | 2024-01-05 18:32 | PTCARENOTE ---
Received patient to [facility] at 1815, awake alert oriented. Patient in moderate pain in left leg, requested pain med. Able to make her needs known. Oriented to room, having dinner at present .
[2024-01-05] MEDS: DILAUDID 0.5 MG IV (20:40)
[2024-01-05] MEDS: ATIVAN 0.5 MG PO (21:59)
[2024-01-05] MEDS: MELATONIN 10 MG PO (21:59)
[2024-01-05] MEDS: SYNTHROID 112 MCG PO (22:01)
[2024-01-05 23:30] VITALS: BP 142/72
--- NOTE | 2024-01-06 00:38 | PTCARENOTE ---
Addendum entered by Katharine Queen RN 01/06/24 03:47:
Patient aapx3 at 1900 and agreeable to fall prevention education and call maddox was within reach.
Original Note:
Patient found on floor sitting next to her bed by patient care program resident at around 0015. Patient stated that she had a bowel movement and wanted to wipe herself. Patient denies hitting head. Patient was assisted to the bed and cleaned up. Bed alarm
applied and nonskid socks remain on. Call maddox was in reach prior to patient getting out of bed and fall education was provided in beginning of the shift. Call maddox placed next to patient once she was assisted back into bed. Fall education
reinforced. Nurse practitioner Guerline Kovacs made aware. Nursing supervisor hot strip mill made aware.
--- NOTE | 2024-01-06 00:56 | W.PN.UPDATE ---
Update Note
Progress Note Update
FALL: Notified by RN patient had unwitness fall, found on the floor sitting next to bed with left leg immobilizer on. Upon visit, patient AAOX3, reports she was trying to get OOB and slid down to the floor. Patient denies new pain, VSS. Patient
reports she had the immobilizer in place. Nurisng to place patient on fall precaution/alarm.
[2024-01-06 06:54] LABS: % Basophils 0.5 % (0-2); % Eosinophils 1.6 % (0-6); % Immature Granulocytes 0.5 % (0-0.5); % Lymphocytes 16.9 % (20.5-51.1); % Monocytes 7.8 % (1.7-9.3); % Neutrophils 72.7 % (42.2-75.2); Absolute Basophils 0.1 10^3/uL (0-0.2); Absolute Eosinophils 0.2 10^3/uL (0-0.7); Absolute Immature Granulocytes 0.1 10^3/uL (0-0.05); Absolute Lymphocytes 1.8 10^3/uL (1.2-3.4); Absolute Monocytes 0.8 10^3/uL (0.1-0.6); Absolute Neutrophils 7.8 10^3/uL (1.4-6.5); Hematocrit 34.7 % (37.0-47.0); Hemoglobin 11.4 g/dL (12.0-16.0); Mean Corp Hgb Conc. 32.9 g/dL (33.0-37.0); Mean Corpuscular Hgb 26.5 pg (27.0-31.0); Mean Corpuscular Volume 80.7 fL (81.0-99.0); Nucleated Red Blood Cells % 0 %; Platelet Count 279 10^3/uL (130-400); Red Cell Dist. Width 14.8 % (11.5-14.5); White Blood Cell Count 10.7 10^3/uL (4.8-10.8)
[2024-01-06 07:16] LABS: Blood Urea Nitrogen 26 mg/dl (7-17); Calcium 9.4 mg/dl (8.4-10.2); Carbon Dioxide 24 mmol/L (22-30); Chloride 103 mmol/L (98-107); Estimated Creatinine Clearance 50 ml/min; Glucose 110 mg/dl (70-99); Potassium 4.4 mmol/L (3.5-5.1); Sodium 141 mmol/L (135-145); eGFR > 60.00
[2024-01-06 07:50] VITALS: BP 131/61
[2024-01-06] MEDS: LIORESAL 10 MG PO ×3 (09:08→19:26)
[2024-01-06] MEDS: MACRODANTIN 50 MG PO (09:08)
[2024-01-06] MEDS: CELEBREX 200 MG PO (09:08)
[2024-01-06] MEDS: DITROPAN 5 MG PO ×2 (09:08→19:26)
[2024-01-06] MEDS: ROXICODONE 5 MG PO ×2 (09:09→19:46)
[2024-01-06] MEDS: PROTONIX 40 MG PO (09:09)
[2024-01-06] MEDS: FEOSOL 325 MG PO (09:09)
[2024-01-06] MEDS: NEURONTIN 300 MG PO ×3 (09:09→23:48)
[2024-01-06] MEDS: SENOKOT PO ×2 (09:10→19:28)
[2024-01-06] MEDS: LEXAPRO 10 MG PO (09:10)
[2024-01-06] MEDS: COLACE PO ×2 (09:11→19:25)
[2024-01-06] MEDS: TYLENOL PO (09:11)
--- NOTE | 2024-01-06 10:44 | W.PN.HOSP.TC ---
Today's Communication/Plan
-
As needed analgesia
Maintain knee immobilizer
SNF placement
Orthopedics follow-up after discharge
Assessment / Plan
Assessment / Plan
#Acute nondisplaced left femur fracture, midshaft
#Mechanical fall at home
#S/P left hip ORIF previous to hospitalization
-Had a fall at home when she took a hand off of her walker, then tipped over
-Fell onto her left hip/leg with significant pain following; x-ray showing nondisplaced fracture
-Evaluated by orthopedics, recommending left knee immobilizer and NWB LLE with walker
-Current analgesia includes Tylenol/oxycodone/Dilaudid IV
-Will continue to monitor pain level, uptitrate analgesics as needed
-PT/OT for evaluation for SNF
-Continue with DVT prophylaxis
-Patient to follow-up with Dr. Cliftno Cuevas at [place]
#Hypothyroidism
-unknown etiology, recent labs well-controlled, stable on levothyroxine 112 mcg
-Currently takes nightly levothyroxine, may change to standard morning dose
#GERD
-no history of PE or erosive disease, home meds include Protonix
-No complaints today
#Iron deficiency anemia
-Hgb baseline near 11, not currently on iron per home med list
-Hemoglobin here 11.1 with slightly microcytic cell volume
-No signs or symptoms of bleeding, will resume iron supplements
DVT prophylaxis: Lovenox
Diet: Regular
CODE STATUS: Full
Medically stable for discharge, pending SNF placement and insurance authorization
Anticipated Discharge: Within 24 hours
Subjective/Interval History
-
Date of Service: January 06, 2024
Seen and examined at bedside. No acute vents overnight. AFVSS this morning.
She was very tired and not very participatory in conversation.
Denied any and all acute complaints, states she felt well and that her pain was tolerable
Objective Data
-
Labs:
Laboratory Results
01/06/24
06:15
WBC 10.7
Hgb 11.4 L
Hct 34.7 L
Plt Count 279
Sodium 141
Potassium 4.4
Chloride 103
Carbon Dioxide 24
BUN 26 H
Creatinine 0.6
Glucose 110 H
Calcium 9.4
Vital Signs:
Vital Signs
Temp Pulse Resp BP Pulse Ox
97.5 F 65 17 131/61 96
01/06/24 07:50 01/06/24 07:50 01/06/24 07:50 01/06/24 07:50 01/06/24 07:50
Review of Systems
-
History Source: Patient
All other systems: Reviewed and negative
Physical Exam
-
General: Well Nourished, No Apparent Distress and Comfortable
HEENT: Normocephalic, Atraumatic and Moist Mucous Membranes
Respiratory: Clear to Auscultation and Non Labored Respirations
Cardiac: Regular Rhythm; Negative Murmur, Rub or Gallop
GI: Soft, Nontender, Nondistended and Normal Bowel Sounds
Musculoskeletal: No Clubbing, No Cyanosis and No Edema
Skin: Warm and Dry; Negative Rash
Neuro: AO x 3, Nonfocal/Grossly Intact and Central Nerve's Intact
Psych: Calm
Data Reviewed
-
Labs: Labs Reviewed by me
--- NOTE | 2024-01-06 11:27 | CM ---
CM reviewed chart, met with patient bedside, initial assessment completed. Patient resides at [facility], typically ambulates with a walker. Patient reports she has had [facility] in past. Patient pharmacy [facility]. CM discussed PT
recommendations for SNF, [facility], [facility], and [facility] can accept pending bed availability. CM placed call to daughter/POA, Francesca. Francesca reports patient has been to SNF in the past, most recently at [facility], first choice would be
[facility], [facility] and [facility]. Francesca requesting call from [facility] with request. CM will await to hear from [facility] for SNF placement. CM will continue to follow for all discharge planning needs.
Plan; SNF pending accepting facility, first choice [facility], [facility].
--- NOTE | 2024-01-06 13:54 | W.PN.UPDATE ---
Update Note
Progress Note Update
Spoke with daughter at length
We can have partial WB LE with walker and knee immobilizer
Keep knee immobilizer on all times except for bathing and skin check
Her original orthopaedic surgery in [facility] and her daughter Francesca would like to keep her local
I can see her in F/U in about 2-3 weeks as outpt
Potential for fx displacing and requiring surgery discussed
Definitely needs DVT prophylaxis during healing---Aspirin daily at the minimum
thanks
GGMD
[2024-01-06] MEDS: TYLENOL 500 MG PO ×2 (13:55→22:19)
[2024-01-06 15:54] VITALS: BP 117/68
[2024-01-06] MEDS: LOVENOX 40 MG SC (15:56)
[2024-01-06] MEDS: SYNTHROID 112 MCG PO (22:19)
[2024-01-06] MEDS: ATIVAN 0.5 MG PO (22:20)
[2024-01-06] MEDS: MELATONIN 10 MG PO (22:20)
[2024-01-06 23:30] VITALS: BP 195/60
[2024-01-07 00:15] VITALS: BP 111/59
[2024-01-07 07:00] VITALS: BP 137/67
[2024-01-07] MEDS: NEURONTIN 300 MG PO (09:16)
[2024-01-07] MEDS: TYLENOL 500 MG PO ×2 (09:16→13:12)
[2024-01-07] MEDS: FEOSOL 325 MG PO (09:16)
[2024-01-07] MEDS: DITROPAN 5 MG PO (09:16)
[2024-01-07] MEDS: PROTONIX 40 MG PO (09:17)
[2024-01-07] MEDS: SENOKOT 17.2 MG PO (09:17)
[2024-01-07] MEDS: LIORESAL 10 MG PO ×2 (09:17→13:12)
[2024-01-07] MEDS: MACRODANTIN 50 MG PO (09:17)
[2024-01-07] MEDS: LEXAPRO 10 MG PO (09:17)
[2024-01-07] MEDS: COLACE 100 MG PO (09:17)
[2024-01-07] MEDS: CELEBREX 200 MG PO (09:18)
--- NOTE | 2024-01-07 10:47 | W.PN.HOSP.TC ---
Today's Communication/Plan
-
Discharged to SNF
Assessment / Plan
Assessment / Plan
#Acute nondisplaced left femur fracture, midshaft
#Mechanical fall at home
#S/P left hip ORIF previous to hospitalization
-Had a fall at home when she took a hand off of her walker, then tipped over
-Fell onto her left hip/leg with significant pain following; x-ray showing nondisplaced fracture
-Evaluated by orthopedics, recommending left knee immobilizer and NWB LLE with walker
-Current analgesia includes Tylenol/oxycodone/Dilaudid IV
-Will continue to monitor pain level, uptitrate analgesics as needed
-PT/OT for evaluation for SNF
-Continue with DVT prophylaxis
-Patient to follow-up with [facility] orthopedics here
#Hypothyroidism
-unknown etiology, recent labs well-controlled, stable on levothyroxine 112 mcg
-Currently takes nightly levothyroxine, may change to standard morning dose
#GERD
-no history of PE or erosive disease, home meds include Protonix
-No complaints today
#Iron deficiency anemia
-Hgb baseline near 11, not currently on iron per home med list
-Hemoglobin here 11.1 with slightly microcytic cell volume
-No signs or symptoms of bleeding, will resume iron supplements
DVT prophylaxis: Lovenox
Diet: Regular
CODE STATUS: Full
Anticipated Discharge: Today
Subjective/Interval History
-
Date of Service: January 07, 2024
Seen and examined bedside. No acute events reported overnight. AFVSS
States she is tired but denies any other acute complaints.
Per case management she does have bed available at [facility] today
Objective Data
-
Vital Signs:
Vital Signs
Temp Pulse Resp BP Pulse Ox
97.6 F 64 16 137/67 98
01/07/24 07:00 01/07/24 07:00 01/07/24 07:00 01/07/24 07:00 01/07/24 07:00
I&O
01/06/24 01/07/24 01/08/24
06:59 06:59 06:59
Intake Total 420 / 420
Output Total 325 / 325
Balance 95 / 95
Review of Systems
-
History Source: Patient
All other systems: Reviewed and negative
Physical Exam
-
General: No Apparent Distress and Comfortable
HEENT: Normocephalic, Atraumatic and Moist Mucous Membranes
Respiratory: Clear to Auscultation and Non Labored Respirations
Cardiac: Regular Rhythm; Negative Murmur, Rub or Gallop
GI: Soft, Nontender, Nondistended and Normal Bowel Sounds
Musculoskeletal: No Clubbing, No Cyanosis, No Edema and Other (Left knee immobilizer in place)
Skin: Warm and Dry; Negative Rash
Neuro: AO x 3, Nonfocal/Grossly Intact and Central Nerve's Intact
Psych: Calm
--- NOTE | 2024-01-07 11:07 | CM ---
Addendum entered by Jamila Booker 01/07/24 11:17:
[facility]
Report: [phone]

Original Note:
CM reviewed chart, patient for discharge today, [facility] can accept for SNF. CM spoke with patients daughter/POA, Francesca, discussed discharge today. IMM reviewed verbally, placed in chart. Patient see bedside, discussed 3:00 p.m. ambulance
transport. CM will continue to follow for all discharge planning needs.
Plan; [facility] SNF, 3:00 p.m. ambulance transport
--- NOTE | 2024-01-07 14:19 | W.DCSUMMARY ---
Discharge Summary
Discharge Data
Date of Admission: 01/04/24
Date of Discharge: 01/07/24
-
Pending Results: No
Hospital Course
78-year-old female with GERD, hypothyroidism, MYAH, IBS, s/p left ORIF that presented after a fall at home when she slipped while not using her walker. Found to have midshaft nondisplaced left femoral fracture on arrival. Minimal displacement seen
on imaging here. Was evaluated by orthopedics and recommended minimal weightbearing as tolerated to the left lower extremity, knee immobilizer, physical therapy with likely SNF placement. Was evaluated by PT in the hospital and SNF was arranged.
To be seen as an outpatient by Dr. Blayne Ramirez from [facility] orthopedics after discharge from SNF. To continue on home oxycodone for mild to moderate pain, provided 5-day prescription of 10 mg oxycodone every 8 hours as needed for severe pain.
Discharge Plan
-
Patient Disposition: Care Home/SNF
Discharge Diagnosis/Procedures: Left midshaft femur fracture, nondisplaced
Condition: Good
Diet: No restrictions
Activity: As tolerated
Driving Restrictions: No driving for 24 hours
Bathing Restrictions: None
Blood Work: None
Others Tests: None
Other Services: PT and OT
Activity Restrictions/Additional Instructions:
After discharge patient should follow-up with primary care physician within a 7-day timeframe. She will also have follow-up appointment with Dr. Ramirez from orthopedics, consideration for surgical procedure.
Instructions: Femur fracture
Referrals:
Blayne Ramirez MD [Active] - (Call to schedule appointment for after discharge from rehab)
UNKNOWN - PT DOES,NOT KNOW [Family Provider] -
Additional Discharge Medication Instructions: Take ferrous sulfate daily
Take senna twice daily while on consistent opiate therapy, consider MiraLAX as well if needed
For pain will continue with her home medication oxycodone 5 mg every 8 hours as needed, prescription provided for 10 mg every 8 hours as needed for severe breakthrough pain.
Patient should continue nitrofurantoin macrocrystalline regimen as directed by prescribing physician
Prescriptions:
New
ferrous sulfate [FeroSul] 325 mg (65 mg iron) Tablet
325 mg PO DAILY 30 Days Qty: 30 0RF
sennosides [Senna Laxative] 8.6 mg Tablet
17.2 mg PO BID 30 Days Qty: 120 0RF
oxycodone 10 mg tablet
10 mg PO Q8H PRN (Reason: Severe pain) 5 Days Qty: 14 0RF
Continued
oxybutynin chloride 10 mg tablet extended release 24hr
10 mg PO DAILY
levothyroxine 112 mcg tablet
112 mcg PO HS
pantoprazole 40 mg Tablet,Delayed Release (Dr/Ec)
40 mg PO DAILY
celecoxib 200 mg Capsule
200 mg PO DAILY Qty: 30 0RF
gabapentin 300 mg Capsule
300 mg PO Q8 Qty: 60 0RF
baclofen 10 mg tablet
10 mg PO TID@0800,1400,2000
oxycodone 5 mg tablet
5 mg PO Q8HPRN PRN (Reason: moderate pain)
nitrofurantoin macrocrystal 50 mg capsule
50 mg PO DAILY
escitalopram oxalate 10 mg tablet
10 mg PO DAILY
melatonin 10 mg Tablet
10 mg PO HS
acetaminophen 500 mg tablet
500 mg PO Q8H
lorazepam 0.5 mg tablet
0.5 mg PO HS
docusate sodium 100 mg capsule
100 mg PO DAILY
Discharge Orders:
Discharge Patient (As Directed); Ordered 01/07/24
Ordered By: William Amaya
Discharge Date and Time
Print Language: SRI LANKAN
[2024-01-07 14:50] LABS: COVID-19 Antigen Negative (Negative)
[2024-01-07 15:14] VITALS: BP 124/68
== END 2024-01-07 16:35 | DRG 534 ==
LOC: 4 WEST ACU 22:59
PROVIDERS: Nurse Practitioner; ADMITTING PHYSICIAN Internal Medicine; ATTENDING PHYSICIAN Internal Medicine; CONSULT PHYSICIAN Orthopaedic Surgery Hand Surgery; EMERGENCY PHYSICIAN Emergency Medicine
DX: S72.335A Nondisplaced oblique fracture of shaft of left femur, initial encounter for closed fracture (principal); M97.02XA Periprosthetic fracture around internal prosthetic left hip joint, initial encounter; E78.00 Pure hypercholesterolemia, unspecified; E03.9 Hypothyroidism, unspecified; D63.8 Anemia in other chronic diseases classified elsewhere; K21.9 Gastro-esophageal reflux disease without esophagitis; G89.4 Chronic pain syndrome; M19.90 Unspecified osteoarthritis, unspecified site; M79.7 Fibromyalgia; K58.9 Irritable bowel syndrome, unspecified; D50.9 Iron deficiency anemia, unspecified; F41.0 Panic disorder [episodic paroxysmal anxiety]; F32.A Depression, unspecified; W01.0XXA Fall on same level from slipping, tripping and stumbling without subsequent striking against object, initial encounter; Y93.01 Activity, walking, marching and hiking; Y92.099 Unspecified place in other non-institutional residence as the place of occurrence of the external cause; W06.XXXA Fall from bed, initial encounter; Y93.9 Activity, unspecified; Y92.239 Unspecified place in hospital as the place of occurrence of the external cause; Z96.643 Presence of artificial hip joint, bilateral; Z87.442 Personal history of urinary calculi; Z87.891 Personal history of nicotine dependence; Z79.51 Long term (current) use of inhaled steroids; Z79.890 Hormone replacement therapy; Z79.1 Long term (current) use of non-steroidal anti-inflammatories (NSAID); Z79.82 Long term (current) use of aspirin; Z79.891 Long term (current) use of opiate analgesic; Z87.440 Personal history of urinary (tract) infections; Z88.0 Allergy status to penicillin; Z88.8 Allergy status to other drugs, medicaments and biological substances; Z91.041 Radiographic dye allergy status; Z91.040 Latex allergy status; Z11.52 Encounter for screening for COVID-19
CPT/HCPCS: 73502; 73552; 80048; 80053; 85025; 87811; 97167; 97530; 97535

== ENCOUNTER 2024-03-17 16:21 | Inpatient (IN) | payer MEDICARE, OTHER, SELFPAY ==
[2024-03-17] VITALS (14 sets, daily range): BP systolic 107–134; BP diastolic 48–83; BMI 18.3; BMI 23.1
--- NOTE | 2024-03-17 10:14 | ED.GENMED ---
History of Present Illness
General
Chief Complaint: Fall
Source: patient
Exam Limitations: none
Time Seen by Provider: 03/17/24 09:48
Nursing documentation reviewed up to this point in time: agreed with
History of Present Illness
History of Present Illness:
Patient is a 78-year-old female from [place] who reports that she was getting dressed and lost her balance. She denies feeling dizzy or lightheaded she simply lost her balance while getting dressed. She was supposed to follow-up with Dr. Davis
today for follow-up appointment on previous left femur fracture. (Patient was admitted 01/03 to 01/06 ) she does feel that she injured this area again. She did hit her head but denies any headache or nausea vomiting. She is not on blood thinners.
She primarily complains of pain to the left thigh femur area. She does report however since receiving the fentanyl from EMS she is feeling better.
Past History
Past History
ED Past Medical History: Hypercholesterolemia, Psychiatric (Anxiety/depression/panic disorder) and Other (Kidney stones)
ED Past Surgical History: Gynecological, Orthopedic (Bunionectomy with hammertoe repair, left patellar fracture, right hip replacement, fusion C3-4-5 and 6), Tonsilectomy and Other (Patient has functional quadriplegia with spasticity, left leg brace)
Social History
Tobacco: Former smoker
Alcohol: None
Personal:
Living: with family
Review of Systems
Review of Systems
Allergies reviewed?: Yes
All Other Systems: ROS reviewed and negative except as documented in HPI and ROS
Constitutional: Reports no symptoms
Musculoskeletal: Reports other (left femur /thigh pain )
Skin: Reports no symptoms
Neurological: Reports no symptoms
Psychiatric: Reports no symptoms
Phy Exam
General Physical Exam
General Presentation: no apparent distress
General age: appears stated age
General Skin: warm and dry
General Habitus: normal
General Mental: alert
General Hydration: appears well hydrated
Neurological Exam
Neurological Exam: alert and oriented x3
Musculoskeletal Exam
Musculoskeletal Exam: other (Tender to left thigh region no deformity thigh appears mildly swollen no obvious head injury; pain with range of motion ; no head injury on exam no bony cervical spine tenderness, thoracic or lumbar tenderness)
Skin Exam
Skin Exam: normal color and warm/dry
Psychiatric Exam
Psychiatric Exam: normal mood/affect
Course
Orders/Labs/Results
Orders:
Orders
03/17/24 10:13
CT Head W/o Iv Contrast Urgent
Comment:
Reason For Exam: trauma
03/17/24 10:14
Femur, Left 2 View [CR Femur - Left Min 2 Vw] Urgent
Comment:
Reason For Exam: trauma
Hip, Left 2-3 Views [CR Hip - LT w/wo Pel 2-3 Vw*] Urgent
Comment:
Reason For Exam: 21trauma
Include a pelvis x-ray?: Yes
03/17/24 11:30
Morphine Sulfate 4 mg IV NOW STA
03/17/24 13:36
Knee Immobilizer Left-Treatmen ONCE
0.9% Sodium Chloride 500 ml [Nss] 500 ml IV BOLUS
03/17/24 14:20
HYDROmorphone [Dilaudid] 0.5 mg IV NOW STA
03/17/24 14:21
Electrocardiogram (*1) Stat
Reason for Study: Other
Other Reason for Exam: Headache
EKG- Treatment ONCE
03/17/24 14:41
Complete Blood Count/With Diff Urgent
Comprehensive Metabolic Panel Urgent
PTT Urgent
Prothrombin Time Urgent
Abnormal Lab Results
03/17/24
14:41
WBC 11.6 H 10^3/uL
(4.8-10.8)
Hgb 11.7 L g/dL
(12.0-16.0)
MCHC 31.5 L g/dL
(33.0-37.0)
RDW 16.8 H %
(11.5-14.5)
MPV 10.7 H fL
(7.4-10.4)
Absolute Neuts (auto) 9.7 H 10^3/uL
(1.4-6.5)
Neutrophils % 83.1 H %
(42.2-75.2)
Lymphocytes % 10.7 L %
(20.5-51.1)
BUN 19 H mg/dl
(7-17)
Creatinine 0.5 L mg/dL
(0.6-1.0)
Glucose 101 H mg/dl
(70-99)
03/17/24 14:41
03/17/24 14:41
Vital Signs
Initial and Last Documented VS:
Initial Vital Signs
Temp Pulse Resp BP Pulse Ox
98.5 F 65 22 134/63 92
03/17/24 09:38 03/17/24 09:38 03/17/24 09:38 03/17/24 09:38 03/17/24 09:38
Last Documented Vital Signs
Temp Pulse Resp BP Pulse Ox
97.6 F 69 20 119/64 96
03/17/24 14:53 03/17/24 15:00 03/17/24 15:00 03/17/24 15:00 03/17/24 15:00
MDM/Problems Addressed
Differential Diagnosis Includes:
Not limited to head injury, hip fracture versus femur fracture versus contusion
MDM/Problems Addressed:
78 yr old female presents to the ER for evaluation of fall and left femur pain. Patient has a healing known distal non displaced femur fracture and fell today sustaining an acute oblique spiral fracture of the distal diaphysis metaphysis of the
femur without significant displacement. This is a new location from previous fracture. She was scheduled to follow-up with Dr. Davis today.
Patient is on blood thinners. She did hit head CT head negative.
\\She has no other complaints. Case reviewed with [facility] on-call Dr. Ramirez who recommend speaking to . We attempted to page Dr. Davis Several times and also reach him via [facility] text however no response. I
Spoke with transfer center and discussed with ortho /trauma Dr Delgado. Pt to be accepted under hospitalist service. I did speak with Dr. Kapoor , who does accept patient to the hospital service to medical surgical unit.
Plan of care discussed with patient and daughter.
There are no current beds at [facility]. Will admit to hospital until bed is available. Case discussed admitting hospitalist immobilizer in place. Fluids ordered.
Chronic conditions affecting care:
previous femur fracture
*Radiology
Radiology exam reviewed: radiology read reviewed
*Pulse Oximetry
Patient hypoxic: no
*Critical Care Note
Total Time (30-74mins, 75-104mins- exclusive of procedures): Not Applicable
ED Attending Note
-
Portions of this chart may have been created with voice recognition software.� Occasional wrong word or��sound alike� substitutions may have occurred due to the inherent limitations of voice recognition software.
Discharge Plan
Departure
Patient Disposition: Admit
Date of Disposition: 03/17/24
Time of Disposition: 15:18
Admit to: Med/Surg
Admit to doctor: hospitalist
Presentation/result/management discussed w/ accepting MD/DO: Hospitalist
Patient with high blood pressure during this ER visit?: No
Condition: Fair
Covid-19: Not Applicable
Discharge Problem:
Fracture of left femur
Prescriptions:
No Action
oxybutynin chloride 10 mg tablet extended release 24hr
10 mg PO DAILY
levothyroxine 112 mcg tablet
112 mcg PO HS
pantoprazole 40 mg Tablet,Delayed Release (Dr/Ec)
40 mg PO DAILY
celecoxib 200 mg Capsule
200 mg PO DAILY Qty: 30 0RF
gabapentin 300 mg Capsule
300 mg PO Q8 Qty: 60 0RF
baclofen 10 mg tablet
10 mg PO TID@0800,1400,2000
oxycodone 5 mg tablet
5 mg PO Q8HPRN PRN (Reason: moderate pain)
escitalopram oxalate 10 mg tablet
5 mg PO DAILY
melatonin 10 mg Tablet
10 mg PO HS
acetaminophen 500 mg tablet
500 mg PO Q8H
lorazepam 0.5 mg tablet
0.5 mg PO HS
docusate sodium 100 mg capsule
100 mg PO DAILY
lidocaine 4 % Adhesive Patch,Medicated
1 patch TOPICAL DAILY PRN (Reason: pain)
magnesium hydroxide [Milk of Magnesia] 400 mg/5 mL Suspension
30 ml PO DAILY PRN (Reason: constipation)
estradiol 0.01 % (0.1 mg/gram) Cream
1 appful VAGINAL DAILY
fluticasone propionate 250 mcg/actuation Blister With Device
1 inh INHALATION BID
bupropion HCl (smoking deter) 150 mg Tablet Extended Release 12 Hr
150 mg PO DAILY
polyethylene glycol 3350 4 gram Powder In Packet
4 g PO DAILY PRN (Reason: constipation)
Referrals:
Carolee Narayanan DO [Family Provider] -
Hospital Transfer
Other hospital: [facility]
Interventions
Interventions:
*Risk Screen - Suicide Last Done: 03/17/24 09:38
*General Assessment Last Done: 03/17/24 09:38
*Neglect/Abuse Screening Last Done: 03/17/24 09:38
ED- Fall Risk Assessment Last Done: 03/17/24 09:38
*ED COVID-19 Vaccine History Last Done: 03/17/24 09:38
ED-Musculoskeletal Assessment Last Done: 03/17/24 09:38
ED- Neurological Assessment Last Done: 03/17/24 09:38
ED-Skin Assessment Last Done: 03/17/24 09:38
Discharge Date and Time
Print Language: PU[place] RICAN
[2024-03-17] MEDS: MORPHINE SULFATE 4 MG IV (11:36)
--- NOTE | 2024-03-17 13:43 | EDRN ---
left knee immobilizer placed
--- NOTE | 2024-03-17 14:14 | EDRN ---
Hermelinda Oliveros [employer] OPER[employer] currently at the pts bedside, transport center called this RN and this RN gave verbal report to the transport center
[2024-03-17] MEDS: NSS 500 IV (14:18)
[2024-03-17] MEDS: DILAUDID 0.5 MG IV (14:32)
--- NOTE | 2024-03-17 14:49 | EDRN ---
this RN noticed that the pts Sp02 was 90% on RA, this RN notified the provider and placed the pt on 2L NC, Sp02 came back up to 96%, will continue to monitor the pt closely
[2024-03-17 14:59] LABS: % Basophils 0.3 % (0-2); % Eosinophils 0.8 % (0-6); % Immature Granulocytes 0.3 % (0-0.5); % Lymphocytes 10.7 % (20.5-51.1); % Monocytes 4.8 % (1.7-9.3); % Neutrophils 83.1 % (42.2-75.2); Absolute Eosinophils 0.1 10^3/uL (0-0.7); Absolute Lymphocytes 1.2 10^3/uL (1.2-3.4); Absolute Monocytes 0.6 10^3/uL (0.1-0.6); Absolute Neutrophils 9.7 10^3/uL (1.4-6.5); Hematocrit 37.1 % (37.0-47.0); Hemoglobin 11.7 g/dL (12.0-16.0); Mean Corp Hgb Conc. 31.5 g/dL (33.0-37.0); Mean Corpuscular Hgb 27.6 pg (27.0-31.0); Mean Corpuscular Volume 87.5 fL (81.0-99.0); Mean Platelet Volume 10.7 fL (7.4-10.4); Nucleated Red Blood Cells % 0 %; Platelet Count 286 10^3/uL (130-400); Red Blood Cell Count 4.24 10^6/uL (4.20-5.40); Red Cell Dist. Width 16.8 % (11.5-14.5); White Blood Cell Count 11.6 10^3/uL (4.8-10.8)
[2024-03-17 15:05] LABS: INR 0.95; PT 13.1 Sec (11.4-14.6)
[2024-03-17 15:06] LABS: APTT 27.8 Sec (23.4-35.0)
[2024-03-17 15:08] LABS: ALT (SGPT) 14 U/L (0-35); AST (SGOT) 24 U/L (14-36); Alkaline Phosphatase 66 U/L (38-126); Blood Urea Nitrogen 19 mg/dl (7-17); Calcium 8.9 mg/dl (8.4-10.2); Carbon Dioxide 26 mmol/L (22-30); Chloride 105 mmol/L (98-107); Estimated Creatinine Clearance 61 ml/min; Glucose 101 mg/dl (70-99); Potassium 4.3 mmol/L (3.5-5.1); Sodium 137 mmol/L (135-145); Total Bilirubin 0.4 mg/dl (0.2-1.3); Total Protein 6.4 g/dl (6.3-8.2); eGFR > 60.00
--- NOTE | 2024-03-17 16:15 | HPS.HSE ---
Family Physician
-
Family Physician: Carolee Narayanan
Chief Complaint
-
Fall, left leg pain
History of Present Illness
78-year-old female sustained a fall today and came into the emergency room. No loss of consciousness. No dizziness or lightheadedness. No chest pain or shortness of breath.
Diagnosed with a left femoral fracture and we were asked to admit to the hospital. Awaiting transfer to [facility] for orthopedic surgery but no bed available currently.
Apparently she was admitted to our hospital from January 03 to January 07, 2024 after a fall at home, diagnosed with acute nondisplaced left femoral fracture. Treated nonoperatively by orthopedics and discharged to SNF. Plan was to follow-up with
Dr. Ramirez after discharge from SNF.
Medical History
Past Medical History
Past Medical History: Reports Other
Additional Past Medical History:
GERD
hypothyroidism
IBS
COPD
Anxiety/depression
Fibromyalgia
Past Surgical History: Reports Orthopedic
Additional Past Surgical History:
Cataract surgery
Tubal ligation
Right elbow tendon repair
Left hip ORIF March 2023, 3 total procedures of left hip
Social History
Tobacco: Former Smoker
Alcohol: Occasional
Drug: None
Living: Assisted Living
Employment: Not Employed
Family History
Family History: Not pertinent
Allergies / Home Medications
Allergies reflects when Allergies were last updated in [facility].
Home Medications with original date entered in [facility]
Allergy/Medication List:
Allergies
Allergy/AdvReac Type Severity Reaction Status Date / Time
apixaban [From Eliquis] Allergy Blood in Verified 03/17/24 15:03
urine
Iodinated Contrast Media Allergy 'rendered Verified 03/17/24 15:03
[Iodinated Contrast Media - me
IV Dye] uconscious'
iodine Allergy UNKNOWN Verified 03/17/24 15:03
'SENSITIVE'
Latex, Natural Rubber Allergy Rash Verified 03/17/24 15:03
penicillin G Allergy diarrhea Verified 03/17/24 15:03
propofol Allergy SEE BELOW Verified 03/17/24 15:03
Home Medications
levothyroxine 112 mcg tablet 112 mcg PO HS Thyroid 04/13/22
oxybutynin chloride 10 mg tablet,extended release 24 hr 10 mg PO DAILY Urinary issue 04/13/22
pantoprazole 40 mg tablet,delayed release 40 mg PO DAILY Gastrointestinal issue 04/13/22
celecoxib 200 mg capsule 200 mg PO DAILY #30 caps 04/27/22
gabapentin 300 mg capsule 300 mg PO Q8 #60 caps 04/27/22
baclofen 10 mg tablet 10 mg PO TID@0800,1400,2000 Muscle Spasms 08/30/23
oxycodone 5 mg tablet 5 mg PO Q8HPRN PRN moderate pain 08/30/23
acetaminophen 500 mg tablet 500 mg PO Q8H pain 01/04/24
docusate sodium 100 mg capsule 100 mg PO DAILY Constipation 01/04/24
escitalopram oxalate 10 mg tablet 5 mg PO DAILY depression/anxiety 01/04/24
lorazepam 0.5 mg tablet 0.5 mg PO HS anxiety 01/04/24
melatonin 10 mg tablet 10 mg PO HS sleep 01/04/24
bupropion HCl (smoking deter) 150 mg tablet,12 hr sustained-release(smoking deterrent) 150 mg PO DAILY 03/17/24
estradiol 0.01% (0.1 mg/gram) vaginal cream 1 appful vaginal DAILY 03/17/24
fluticasone propionate 250 mcg/actuation blister powder for inhalation 1 inh inhalation BID 03/17/24
lidocaine 4 % topical patch 1 patch topical DAILY PRN pain 03/17/24
magnesium hydroxide 400 mg/5 mL oral suspension (Milk of Magnesia) 30 ml PO DAILY PRN constipation 03/17/24
polyethylene glycol 3350 4 gram oral powder packet 4 g PO DAILY PRN constipation 03/17/24
Review of Systems
-
History Source: Patient
A 12 point ROS was completed and negative except as noted: Yes
Physical Exam
Vital Signs
Vital Signs
Temp Pulse Resp BP Pulse Ox
97.6 F 86 21 122/83 96
03/17/24 14:53 03/17/24 16:00 03/17/24 16:00 03/17/24 16:00 03/17/24 16:00
Physical Exam
General: Well Developed, Well Nourished, No Apparent Distress and Comfortable
HEENT: NormoCephalic, Anicteric and Moist mucous membranes
Respiratory: Clear
Cardiac: S1/S2 and Regular Rhythm
Breast: Deferred by me
GI: Soft, Non Tender and Non Distended
Genito-urinary: Deferred by me
Musculoskeletal: No Clubbing, No Cyanosis and No Edema
Skin: Warm and Dry
Neuro: AO x 3
Hematologic/Lymphatic: No Lymphadenopathy
Psych: Calm
Laboratory Results
-
03/17/24 14:41
03/17/24 14:41
Laboratory Results
PT 13.1 Sec (11.4-14.6) 03/17/24 14:41
INR 0.95 03/17/24 14:41
APTT 27.8 Sec (23.4-35.0) 03/17/24 14:41
Total Bilirubin 0.4 mg/dl (0.2-1.3) 03/17/24 14:41
AST 24 U/L (14-36) 03/17/24 14:41
ALT 14 U/L (0-35) 03/17/24 14:41
Alkaline Phosphatase 66 U/L (38-126) 03/17/24 14:41
Impression/Plan
-
Acute traumatic spiral fracture of the distal left femur -due to fall at home and underlying osteoporosis. Complicated fracture and orthopedics recommends transfer to [facility] for orthopedic surgery. No bed available. Patient consents to
transfer. Admit to our hospital while we await a bed in [place]. Continue analgesics.
Chronic normocytic anemia -hemoglobin is at baseline.
Osteoporosis -needs to be addressed by her primary care doctor after discharge.
GERD
Hypothyroidism -continue levothyroxine.
IBS
Full code
[2024-03-17] MEDS: LOVENOX 40 MG SC (18:31)
[2024-03-17] MEDS: LIORESAL 10 MG PO (21:38)
[2024-03-17] MEDS: DITROPAN 5 MG PO (21:38)
[2024-03-17] MEDS: MELATONIN 10 MG PO (21:38)
[2024-03-17] MEDS: ATIVAN 0.5 MG PO (21:38)
[2024-03-17] MEDS: TYLENOL 500 MG PO (21:38)
[2024-03-17] MEDS: SYNTHROID 112 MCG PO (21:41)
[2024-03-17] MEDS: DILAUDID 0.25 MG IV (23:52)
[2024-03-17] MEDS: NEURONTIN 300 MG PO (23:53)
[2024-03-18 00:18] VITALS: BP 112/55
== END 2024-03-18 00:34 | disposition short-term general hospital (02) | DRG 542 ==
LOC: 3 WEST ACU 16:21
PROVIDERS: Nurse Practitioner; ADMITTING PHYSICIAN Hospitalist; EMERGENCY PHYSICIAN Emergency Medicine; FAMILY PHYSICIAN Internal Medicine
DX: M80.852A Other osteoporosis with current pathological fracture, left femur, initial encounter for fracture (principal); R53.2 Functional quadriplegia; W19.XXXA Unspecified fall, initial encounter; K21.9 Gastro-esophageal reflux disease without esophagitis; E03.9 Hypothyroidism, unspecified; K58.9 Irritable bowel syndrome, unspecified; J44.9 Chronic obstructive pulmonary disease, unspecified; F41.0 Panic disorder [episodic paroxysmal anxiety]; F32.A Depression, unspecified; M79.7 Fibromyalgia; Z87.891 Personal history of nicotine dependence; D64.9 Anemia, unspecified; E78.00 Pure hypercholesterolemia, unspecified; Z96.641 Presence of right artificial hip joint
CPT/HCPCS: 29505; 70450; 73502; 73552; 80053; 85025; 85610; 85730; 93005; 96361; 96374; 96375; 99285

== ENCOUNTER → 2024-07-04 11:22 | Outpatient (REF) | payer MEDICARE, OTHER, SELFPAY | LOC: HWWDC 11:22 | PROVIDERS: ATTENDING PHYSICIAN Obstetrics & Gynecology Gynecology; FAMILY PHYSICIAN Hospitalist | DX: Z12.31 Encounter for screening mammogram for malignant neoplasm of breast (principal) | CPT/HCPCS: 77063; 77067 ==

== ENCOUNTER → 2024-07-18 13:07 | Outpatient (REF) | payer MEDICARE, OTHER, SELFPAY | LOC: HWRAD 13:07 | PROVIDERS: ATTENDING PHYSICIAN Obstetrics & Gynecology Gynecology; FAMILY PHYSICIAN Hospitalist | DX: N95.0 Postmenopausal bleeding (principal) | CPT/HCPCS: 76830; 76856 ==

== ENCOUNTER → 2024-08-21 12:50 | Outpatient (REF) | payer MEDICARE, OTHER, SELFPAY ==
[2024-08-21 16:54] LABS: Urine Albumin 2+ (Neg - Trace); Urine Bilirubin 1+ (Negative); Urine Character Cloudy (Clear); Urine Glucose Negative (Negative); Urine Ketone Negative (Negative); Urine Leukocyte 3+ (Negative); Urine Nitrite Positive (Negative); Urine Occult Blood 2+ (Negative); Urine Specific Gravity 1.015 (<1.030); Urine Urobilinogen 2+ (Neg - 1+)
[2024-08-21 16:56] LABS: Urine Color Orange
[2024-08-21 17:03] LABS: Urine Bacteria Moderate (Negative); Urine White Cell 70-80 /HPF (0-5)
== END ==
LOC: OLABSOL 12:50
PROVIDERS: ATTENDING PHYSICIAN Hospitalist
DX: N39.0 Urinary tract infection, site not specified (principal)
CPT/HCPCS: 81003; 81015; 87086; 87088

== ENCOUNTER → 2025-01-03 12:46 | Outpatient (REF) | payer MEDICARE, OTHER, SELFPAY ==
[2025-01-03 14:29] LABS: ALT (SGPT) 19 U/L (0-35); AST (SGOT) 25 U/L (14-36); Albumin 3.7 g/dl (3.5-5.0); Alkaline Phosphatase 38 U/L (38-126); Blood Urea Nitrogen 31 mg/dl (7-17); Calcium 9.4 mg/dl (8.4-10.2); Carbon Dioxide 26 mmol/L (22-30); Chloride 108 mmol/L (98-107); Glucose 90 mg/dl (70-99); Potassium 4.1 mmol/L (3.5-5.1); Sodium 140 mmol/L (135-145); Total Protein 6.4 g/dl (6.3-8.2); eGFR > 60.00
[2025-01-03 14:46] LABS: Vitamin D, 25-OH*** 23.8 ng/mL (30-80)
== END ==
LOC: OLABSOL 12:46
PROVIDERS: ATTENDING PHYSICIAN Internal Medicine Rheumatology
DX: E67.3 Hypervitaminosis D (principal); M81.0 Age-related osteoporosis without current pathological fracture; Z79.899 Other long term (current) drug therapy
CPT/HCPCS: 36415; 80053; 82306

== ENCOUNTER → 2025-02-13 12:07 | Outpatient (REF) | payer MEDICARE, OTHER, SELFPAY | LOC: EMG 12:07 | PROVIDERS: ATTENDING PHYSICIAN Psychiatry & Neurology Neurology; FAMILY PHYSICIAN Hospitalist | DX: M54.17 Radiculopathy, lumbosacral region (principal); R20.0 Anesthesia of skin | CPT/HCPCS: 95886; 95910 ==